=== PATIENT | female | born 1945 | race Hispanic/Latino ===

== ENCOUNTER 2020-08-21 09:39 | Emergency (ER) | payer MEDICARE ==
[~2020-08-21] VITALS: Ht 154.9 cm; Wt 79.4 kg
[~2020-08-21 09:39] MED LIST: CLINDAMYCIN HC300 MG PO; GLUCOPHAGE500 MG PO; LISINOPRIL5 MG PO
--- NOTE | 2020-08-21 10:11 | NUR ---
ON ARRIVAL, PT AMBULATORY WITH HER WALKER TO ROOM, OFFERED STRETCHER OR CHAIR FOR COMFORT. PT PREFERRED CHAIR. OK ALEXEY BEAL
[2020-08-21] MEDS ORDERED: FENTANYL CITRATE/PF 100MCG/2 ML INJ ONE (10:14)
[2020-08-21] MEDS ORDERED: ONDANSETRON HCL 4 MG ORAL DISINTEGRATING TAB ONE (10:15)
[2020-08-21] MEDS ORDERED: ONDANSETRON HCL 4 MG ORAL DISINTEGRATING TAB PO ONE (10:15)
[2020-08-21] MEDS ORDERED: FENTANYL CITRATE/PF 100MCG/2 ML INJ IJ ONE (10:15)
--- NOTE | 2020-08-21 10:16 | NUR ---
PT DECLINED ICE TRISTON, NO FENTYNAL, NO ZOFRAN. MD IN ROOM AND AWARE. MEDS DISCARDED PER POLICY. PT AGREED TO DRESS ABRASION TO RIGHT KNEE. BACITRACIN/NON STICK DRESSING/ROMAN WRAP BY .
--- OUTSIDE RECORDS SUMMARY | 2020-08-21 10:17 | XMS REPORT | Clinical Summary ---
Author Author [facility] Address Unknown Phone Unavailable Care Team Providers Care Talent Agent Name Role Phone Woodson, Sagar Ricks MD PCP Allergies Comments Active Allergy Reactions Severity Noted Date Sulfamethoxazole-Trimetho Rash Low 05/2018 prim Codeine Hives 05/22/2018 Levofloxacin Shortness Of High 05/22/2018 Breath Morphine Shortness Of High 05/22/2018 Breath Penicillins Swelling 05/22/2018 Medications End Date Status Medication Sig Dispensed Refills Start Date Active metFORMIN (GLUCOPHAGE) Take 500 mg 0 500 mg tablet by mouth 2 (two) times a day with meals. Active lisinopril Take 5 mg by 0 (PRINIVIL,ZESTRIL) 5 mg mouth 2 (two) tablet times a day. Active aspirin (ECOTRIN) 81 MG Take 81 mg by 0 enteric coated tablet mouth nightly. Active cholecalciferol, vitamin Take 2,000 0 D3, (VITAMIN D3) 2,000 Units by unit capsule capsule mouth daily. Active Problems Problem Noted Date Essential hypertension 05/27/2018 Overview: [id number] Type 2 diabetes mellitus with complication, without l yesica-term current use 05/27/2018 of insulin Overview: Added automatically from request for [facility] ery [id number] Hypertension 05/23/2018 Diabetes mellitus 05/23/2018 Surgical History Surgery Date Site/Laterality Comments KNEE SURGERY Bilateral BREAST SURGERY biopsies EYE SURGERY Left cataract GALLBLADDER SURGERY REPAIR, HERNIA, 06/14/2018 Abdomen/N/A Procedure: JAMILA OTIC ASSISTED INCISIONAL HERNIA INCISIONAL OR VENTRAL, REPAIR WITH MESH; Surgeon: Antoine Newberry, ROBOT-ASSISTED, ; Location: [facility] OR; S ervice: General; LAPAROSCOPIC Laterality: N/A; Medical devices from this surgery are i n the Implants section. Medical History Medical History Date Comments Breast disorder Cancer (HCC) hx of oviarian cancer Diabetes mellitus (HCC) Diverticulosis Hypertension Hx of mitral valve prolapse for 25 yrs Family History Medical History Relation Name Comments Diabetes Father Heart disease Father Arthritis Mother Breast cancer Mother Heart disease Mother Relation Name Status Comments Father Mother Social History Date Tobacco Use Types Packs/Day Years Used Never Smoker Smokeless Tobacco: Never Used Drinks/Week oz/Week Comments Alcohol Use 3 Glasses of wine 3.0 Yes Sex Assigned at Date Recorded Not on file Last Filed Vital Signs Not on file Plan of Treatment Health Maintenance Due Date Last Done Comments DIABETES: RETINAL EYE 1957 EXAM DIABETIC FOOT EXAM 1957 BREAST CANCER SCREENING 1997 COLONOSCOPY SCREENING 1997 SHINGLES VACCINES (#1) 1997 65+ PNEUMOCOCCAL VACCINE 2012 (1 of 1 - PPSV23) INFLUENZA VACCINE 05/15/2020 Implants Device Identifier Shelf Expiration Date Model / Serial / L ot Implanted Type Area Manufactur er 05/14/2022 [id number] / / [id number] Symbotex Tm Composite Mesh/2011 IPM GRAFTS N/A: Abdomen, COVIDIEN Cm, Box Of 1 - [id number] Middle Implanted: Qty: 1 on 06/14/2018 by Quadrant/Non Antoine Newberry MD at [facility] 02/11/2021 [id number] / / [id number] 18in V-Loc Pbt Non-Absorbable Wound Wound N/A: N/A COVIDIEN Closure Device, 1, Blue, Gs-21 10/16 Closure/[place] Needle tures CLOSURE Implanted: Qty: 1 on 06/14/2018 by (FORMERLY Antoine Newberry MD at [facility]) HOSPITAL Results Not on fileafter 08/21/2019 Insurance Type Payer Benefit Subscriber ID Effective Phone Address Plan / Dates Group Medicare MEDICARE MEDICARE [id number] [id number] [place], PART A AND resent [place] B Commercial AARP AARP [id number] [id number] SUPPLEMENT resent [phone] Advance Directives For more information, please contact: [phone] Patient Manager Of Sales Explanation Type Date Recorded Advance Directives, 06/07/2018 2:15 PM Living Will and Medical Power of Finishing Frame Runner Date Inactivated Comments Code Status Date Activated 06/15/2018 5:25 PM Full Code 06/14/2018 5:15 PM Code Status decision reached by: Patient
--- OUTSIDE RECORDS SUMMARY | 2020-08-21 10:17 | XMS REPORT | Continuity of Care Document ---
Author Author [facility] t Organization [facility] Address [address] [place] [address] Phone Unavailable Care Team Providers Care Assistant Distribution Manager Name Role Phone Halley LUDWIG PCP Unavailable Augustin KINESIOLOGIST, Agata Attphys Nishant KINESIOLOGIST, Nory Gonzalez Attphys Halley Ludwig MD Attphys Tory BEAL, Jose Attphys Tamika BEAL, Vance Hidalgo Attphys Luz Perkins Attphys Unavailable NORY ABARCA Attphys Unavailable Severo DONG, Shamar Attphys LISBET CYR Attphys Unavailable Laila BEAL, Lisbet Attphys Nannette DONG, Lexy Carrasquillo Attphys Unavailable RIMMA MOSLEY M.D. Attphys Unavailable LEONOR CORONADO M.D. Attphys Unavailable DEEPTI CORTEZ M.D. Attphys Unavailable SE, ECHO Attphys Unavailable MONICA JONES M.D. Attphys Unavailable Payers Payer Name Policy Type Policy Number Effective Date Expiration Date S ource MEDICAREMEDICARE PART A AND [id number] 03/15/[id number], [place] [place] [id number] 2012 00:00:00 MD Ishan nielson [employer] NARINDER-SECONDARY [id number] 2011-PresentMedigap [id number] 2012 00:0 0:00 MD De La Garza Problems Condition Name Condition Details Condition Category Status Onset Date Resolution Date Last Treatment Date Treating Clinician Comments Source Body mass index 30+ - obesity Body mass index 30+ - obesity Disease Active 2020-08-20 00:00:00 MD [place] son Type 2 diabetes mellitus Type 2 diabetes mellitus Disease Acti ve 2020-08-20 00:00:00 MD De La Garza Carcinoma of overlapping sites of left female breast C arcinoma of overlapping sites of left female breast Disease Active 2020-08-19 00:00:00 MD De La Garza 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 Disease Active 2020-08-19 00:00:00 MD Sole etienne Rhabdomyolysis Rhabdomyolysis Disease Active 2019-02-12 00:00:00 MD De La Garza Essential hypertension Essential hypertension Disease Active 2018-05-27 00:00:00 Overview: Added automaticall y from request for surgery [id number] [facility] Type 2 diabetes mellitus with complicati on, without long-term current use of insulin Type 2 diabetes mellitus with complicati on, without long-term current use of insulin Disease Active 2018-05-27 00:00:00 Overview: Added automatically from request for surgery [id number] [facility] History of Diabetes mellitus History of Diabetes mellitus Problem Re solved [facility] History of essential hypertension History of essential hypertens ion Problem Resolved [facility] History of Gallbladder problem History of Gallbladder problem Probl em Resolved [facility] History of hyperlipidemia History of hyperlipidemia Problem Resolved [facility] History of Ovarian Cancer History of Ovarian Cancer Problem Resolved [facility] Gastroenteritis Gastroenteritis Problem Active [facility] Edema, leg Edema, leg [facility] Essential (primary) hypertension Essential (primary) hypertensio n Problem Active [facility] Hyperlipidemia Hyperlipidemia Problem Active [facility] Coronary atherosclerosis Coronary atherosclerosis Problem Active [facility] Statin intolerance Statin intolerance Problem Active [facility] Chronic venous insufficiency Chronic venous insufficiency Problem Active [facility] Personal history of ovarian cancer Personal history of ovarian c ancer Disease Active Overview: treated at age 24 with oophorectomy only MD De La Garza Mitral valve prolapse Mitral valve prolapse Disease Active MD De La Garza Hypertension Hypertension Disease Active MD De La Garza Diabetes mellitus Diabetes mellitus Disease Active MD De La Garza Allergies, Adverse Reactions, Alerts Allergy Name Allergy Type Status Severity Reaction(s) Onset Date Inacti ve Date Treating Clinician Comments Source Sulfamethoxazole-Trimethoprim Propensity to adverse reactions to dr ug Active Rash 2018-05-22 00:00:00 Carroll Redmondist Codeine Propensity to adverse reactions to drug Active Hives 2018-05-22 00:00:00 Carroll Methodis t Levofloxacin Propensity to adverse reactions to drug Active Shortness Of Breath 2018-05-22 00:00:00 [facility] Morphine Propensity to adverse reactions to drug Active Shortness Of Breath 2018-05-22 00:00:00 [facility] Penicillins Propensity to adverse reactions to drug Active Swelling 2018-05-22 00:00:00 Carroll Redmondis t Bactrim Allergy to drug (finding) Active [facility] Codeine Derivatives Allergy to drug (finding) Active [facility] Levaquin TABS Allergy to drug (finding) Active [facility] Morphine Derivatives Allergy to drug (finding) Active [facility] pantoprazole Allergy to drug (finding) Active [facility] Penicillins Allergy to drug (finding) Active [facility] Statins Allergy to drug (finding) Active [facility] Family History Family Member Diagnosis Comments Start Date Stop Date Source Unknown Family Member Family history of Diabetes Mellitus Family Hist ory [facility] Grandmother Family history of Breast Cancer [facility] Grandmother Family history of malignant neoplasm of breast [facility] Mother Family history of Breast Cancer [facility] Mother Family history of Heart Disease [facility] Mother Family history of cancer [facility] Mother Family history of hypertension [facility] Mother Family history of arthritis [facility] Father Family history of diabetes mellitus [facility] Natural father Diabetes [facility] Natural father Heart disease [facility] Natural mother Arthritis [facility] Natural mother Breast cancer [facility] Natural mother Heart disease [facility] Natural mother -Breast cancer Maternal aunt Stomach cancer MD Ruth rschristy Maternal grandmother -Breast cancer MD De La Garza Natural son Leukemia MD De La Garza Family member Ovarian cancer MD Ruth rschristy Social History Social Habit Start Date Stop Date Quantity Comments Source Sex Assigned At MD De La Garza Exposure to SARS-CoV-2 (event) Not sure MD De La Garza Tobacco use and exposure 2020-08-20 00:00:00 2020-08-20 00:00:00 Amy brown used MD De La Garza Alcohol intake 2020-08-20 00:00:00 2020-08-20 00:00:00 Ex-drinker (fi nding) MD De La Garza Alcohol Comment 2018-01-21 00:00:00 2018-01-21 00:00:00 1 glass of wine sometimes MD De La Garza Smoking Status Start Date Stop Date Source Never smoker MD De La Garza Medications Ordered Medication Name Filled Medication Name Start Date Stop Da te Current Medication? Ordering Clinician Indication Dosage Frequency Signature (SIG) Comments Components Source aspirin 81 mg EC tablet 2020-08-20 15:12:01 Yes 81mg Take 81 mg by mouth daily. MD De La Garza cholecalciferol, vitamin D3, 400 units tablet 2020-08-20 15:12:0 1 Yes 800U Take 800 Units by mouth. MD De La Garza predniSONE (DELTASONE) 20 mg tablet 2020-08-20 15:12:01 Yes 1{tbl} Take 1 tablet by mouth every other day. MD De La Garza ascorbic acid (VITAMIN C ORAL) 2020-08-20 15:12:01 Yes Take by mouth. MD De La Garza CALCIUM ORAL 2020-08-20 15:12:01 Yes 1{tbl } Take 1 tablet by mouth daily. MD De La Garza azaTHIOprine (IMURAN) 50 mg tablet 2020-05-19 00:00:00 Yes 4{tbl} Take 4 tablets by mouth daily. MD De La Garza levothyroxine (SYNTHROID, LEVOTHROID) 25 mcg tablet 04-22 00:00:00 Yes 1{tbl} Take 1 tablet by mouth daily. MD De La Garza Levoxyl 25 MCG Oral Tablet Levoxyl 25 MCG Oral Tablet 2020-03-29 00:0 0:00 Yes 1 QD TAKE 1 TABLET DAILY. [facility] hydroCHLOROthiazide 25 MG Oral Tablet hydroCHLOROthiazide 25 MG Oral Tablet 2020-01-01 00:00:00 Yes RIMMA MOSLEY M.D. 1 QD TAKE 1 TABLET DAILY [facility] glipiZIDE ER 5 MG Oral Tablet Extended Release 24 Hour glipiZIDE ER 5 MG Oral Tablet Extended Release 24 Hour 2019-11-18 00:00:00 Yes 1 QD TAKE 1 TABLET DAILY. [facility] Iron 240 (27 Fe) MG Oral Tablet Iron 240 (27 Fe) MG Oral Tab let 2019-11-18 00:00:00 Yes [facility] metFORMIN (GLUCOPHAGE) 500 mg tablet 2019-02-09 14:11:50 Ye s 500mg Q.5D Take 500 mg by mouth 2 (two) times a day with meals. Carroll Lowe lisinopril (PRINIVIL,ZESTRIL) 5 mg tablet 2019-02-09 14:11:50 Yes 5mg Q.5D Take 5 mg by mouth 2 (two) times a day. Carroll Lowe aspirin (ECOTRIN) 81 MG enteric coated tablet 2019-02-09 14:11:5 0 Yes 81mg QD Take 81 mg by mouth nightly. Carroll Lowe cholecalciferol, vitamin D3, (VITAMIN D3) 2,000 unit capsule capsule 2019-02-09 14:11:50 Yes 2000U QD Take 2,000 Units b y mouth daily. Carroll Lowe Lisinopril 20 MG Oral Tablet Lisinopril 20 MG Oral Tablet 2017-07-15 00:00:00 Yes RIMMA MOSLEY M.D. 1 Q0.5D TAKE 1 TABLET BY MOUTH TWICE D WANDER [facility] metFORMIN (GLUCOPHAGE) 500 mg tablet 2016-11-08 00:00: 00 2020-08-20 00:00:00 No 500mg Take 500 mg by mouth 2 (two) times a day with meals. MD De La Garza lisinopril (PRINIVIL,ZESTRIL) 20 mg tablet 2016-08-24 00:00:00 Yes 5mg Take 5 mg by mouth 3 (three) times a day. MD De La Garza Aspirin 81 MG TABS Aspirin 81 MG TABS Yes 1 QD TA KE 1 TABLET DAILY. [facility] predniSONE 20 MG Oral Tablet predniSONE 20 MG Oral Tablet Yes [facility] azaTHIOprine 50 MG Oral Tablet azaTHIOprine 50 MG Oral Tablet Yes [facility] Vital Signs Vital Name Observation Time Observation Value Comments Source HEIGHT 2020-08-02 11:23:24 149.5 cm WEIGHT 2020-08-02 11:23:24 80.3 kg HEIGHT 2020-08-02 11:23:24 149.5 cm WEIGHT 2020-08-02 11:23:24 80.3 kg Body weight 2020-08-20 16:16:00 83.4 kg MD [place] son BMI 2020-08-20 16:16:00 37.32 kg/m2 MD Ishan nielson Systolic blood pressure 2020-08-20 14:57:41 154 mm[Hg] MD De La Garza Diastolic blood pressure 2020-08-20 14:57:41 73 mm[Hg] MD De La Garza Heart rate 2020-08-20 14:57:41 73 /min MD Ishan nielson Body temperature 2020-08-20 14:57:41 36.89 Patricia MD Lolita cheema Respiratory rate 2020-08-20 14:57:41 18 /min MD Lolita cheema Oxygen saturation in Arterial blood by Pulse oximetry 2019-10 14:57:41 98 /min MD De La Garza Body height 2020-08-02 16:23:24 149.5 cm MD [place] naga Systolic blood pressure 2020-03-29 11:03:00 121 mm[Hg] Loca tion: LUE; Position: Sitting [facility] Diastolic blood pressure 2020-03-29 11:03:00 71 mm[Hg] Loc ation: LUE; Position: Sitting [facility] Body height 2020-03-29 11:03:00 61 [in_us] [facility] Weight 2020-03-29 11:03:00 171 [lb_av] [facility] Body mass index (BMI) [Ratio] 2020-03-29 11:03:00 32.31 kg/m2 [facility] Heart Rate 2020-03-29 11:03:00 89 /min Location: L Radial; Q uality: Normal [facility] Procedures Procedure Date / Time Performed Performing Clinician Sourc e XR CHEST 2 VW 2020-08-20 19:14:41 Agata Ruffin MD HEMOGLOBIN A1C 2020-08-20 18:40:00 Agata Ruffin MD COMPREHENSIVE METABOLIC PANEL 2020-08-20 18:40:00 Davonte Ruffin MD COMPLETE BLOOD COUNT W/ DIFFERENTIAL 2020-08-20 18:40:00 Agata Montgomery do, MD PARTIAL THROMBOPLASTIN TIME 2020-08-20 18:40:00 Agata Ruffin MD PROTHROMBIN TIME 2020-08-20 18:40:00 Agata Ruffin MD THYROID STIMULATING HORMONE 2020-08-20 18:40:00 Agata Ruffin MD FREE THYROXINE 2020-08-20 18:40:00 Agata Ruffin MD GLUCOSE LEVEL 2020-08-20 18:40:00 Agata Ruffin MD BLOOD UREA NITROGEN 2020-08-20 18:40:00 Agata Ruffin MD Ishan nielson ELECTROLYTE PANEL 2020-08-20 18:40:00 Agata Ruffin MD Antwono n SERUM CREATININE 2020-08-20 18:40:00 Agata Ruffin MD .GLOMERULAR FILTRATION RATE 2020-08-20 18:40:00 Agata Ruffin MD CALCIUM LEVEL TOTAL 2020-08-20 18:40:00 Agata Ruffin MD Ishan nielson ALBUMIN LEVEL 2020-08-20 18:40:00 Agata Ruffin MD ALKALINE PHOSPHATASE 2020-08-20 18:40:00 Agata Ruffin MD rson ALANINE AMINOTRANSFERASE 2020-08-20 18:40:00 Agata Ruffin MD ASPARTATE AMINOTRANSFERASE 2020-08-20 18:40:00 Agata Ruffin TOTAL PROTEIN 2020-08-20 18:40:00 Agata Ruffin MD FRACTIONATED BILIRUBIN 2020-08-20 18:40:00 Agata Ruffin MD derson Results CBC 2020-08-20 18:40:00 Agata Ruffin MD MANUAL DIFFERENTIAL 2020-08-20 18:40:00 Agata Ruffin MD Ishan nielson EKG, 12-LEAD (SCHEDULED) 2020-08-20 00:00:00 Agata Ruffin MD MAMMO POST PROCEDURE BILATERAL 2020-08-11 22:23:30 Heather Abarca MD US BREAST COMPLETE BILATERAL 2020-08-11 22:11:00 Heather Abarca MD US CHEST 2020-08-11 22:11:00 Heather Abarca MD rschristy US BREAST FINE NEEDLE ASPIRATION - RIGHT 2020-08-11 22:11:00 Heather Abarca MD US GUIDED BREAST BIOPSY RIGHT 2020-08-11 22:11:00 Heather Abarca MD US GUIDED BREAST CLIP PLACEMENT RIGHT 2020-08-11 22:11:00 Heather Abarca MD PATHOLOGY BIOPSY INTERPRETATION 2020-08-11 22:05:00 Heather Abarca MD CYTOLOGY IMAGE-GUIDED FNA INTERPRETATION 2020-08-11 20:54:00 Heather Abarca MD PATHOLOGY BIOPSY INTERPRETATION 2020-08-11 20:51:00 Heather Abarca MD MAMMO DIGITAL DIAGNOSTIC LEFT 2020-08-11 19:10:01 Heather Abarca MD MAMMO DIGITAL SCREENING BILATERAL W ZORAN 2020-08-02 17:24:20 Heather Abarca MD History of Hysterectomy [facility] History of Cholecystectomy [facility] History of Section [facility] History of Tonsillectomy [facility] History of Appendectomy [facility] History of Biopsy [facility] History of Knee Arthroscopy (Therapeutic) [facility] History of Knee arthroscopy [facility] Plan of Care Planned Activity Planned Date Details Comments Source Future Scheduled Test 2020-05-15 00:00:00 INFLUENZA VACCINE [code = INFLUENZA VACCINE] [facility] Scheduled Test 2012 00:00:00 65+ PNEUMOCOCCAL V ACCINE (1 of 1 - PPSV23) [code = 65+ PNEUMOCOCCAL VACCINE (1 of 1 - PPSV23)] [facility] Scheduled Test 1997 00:00:00 BREAST CANCER SCRE ENING [code = BREAST CANCER SCREENING] [facility] Scheduled Test 1997 00:00:00 COLONOSCOPY SCREEN ING [code = COLONOSCOPY SCREENING] [facility] Scheduled Test 1997 00:00:00 SHINGLES VACCINES (#1) [code = SHINGLES VACCINES (#1)] [facility] Scheduled Test 1957 00:00:00 DIABETES: RETINAL EYE EXAM [code = DIABETES: RETINAL EYE EXAM] [facility] Scheduled Test 1957 00:00:00 DIABETIC FOOT EXAM [code = DIABETIC FOOT EXAM] [facility] Appointment 2020-09-27 10:20:00 Nicholas SHANKS, [facility] Encounters Start Date/Time End Date/Time Encounter Type Admission Type Attendi [facility] Care Department Encounter ID Source 2019-03-05 20:42:00 Inpatient [facility] MED [id number] [facility] 2020-08-11 17:05:10 2020-08-11 17:05:10 Outpatient HEATHER VICK MDA [id number] MD Frederic 2020-08-11 14:11:21 2020-08-11 14:11:21 Outpatient HEATHER VICK MDA [id number] MD Frederic 2020-08-11 13:34:34 2020-08-11 13:34:34 Outpatient HEATHER VICK MDA [id number] MD Frederic 2020-08-02 10:35:10 2020-08-02 23:59:00 Outpatient LISBET SWEENEY MDA MDA [id number] MD Frederic 2020-08-02 11:56:26 2020-08-02 11:56:26 Outpatient HEATHER VICK MDA [id number] MD Frederic 2020-08-02 11:01:46 2020-08-02 11:48:41 Outpatient HEATHER VICK MDA [id number] MD Frederic 2020-08-02 00:00:00 2020-08-02 00:00:00 Outpatient HEATHER VICK MDA [id number] MD Frederic 2020-03-29 11:00:00 2020-03-29 11:00:00 Appointment; RIMMA MOSLEY M.D. TRANG, AMANDA, M.D. [facility] [id number] [facility] 2020-03-28 18:39:00 2020-03-28 18:39:00 Emergency E MHSE MHSE [id number] [facility] 2020-01-01 11:00:00 2020-01-01 11:00:00 Appointment; RIMMA MOSLEY M.D. TRANG, AMANDA, M.D. [facility]TP [id number] [facility] 2019-12-18 04:20:00 2019-12-18 04:20:00 Outpatient E MHSE CAR [id number] [facility] 2019-11-18 14:00:00 2019-11-18 14:00:00 Appointment; LEONOR CORONADO M.D. GEORGE, BENNET, M.D. [facility]TP [id number] [facility] 2019-08-23 23:08:00 2019-08-23 23:08:00 Outpatient E [facility] MED [id number] [facility] 2019-07-30 14:40:00 2019-07-30 14:40:00 Appointment; DIMITRIRIMMA M.D. TRANG, AMANDA, M.D. [facility] [id number] [facility] 2019-04-01 10:00:00 2019-04-01 10:00:00 Appointment; DEEPTI CORTEZ M.D. NASCIMBENE, ANGELO, M.D. [facility] [id number] [facility] 2019-03-27 10:45:00 2019-03-27 10:45:00 Appointment; SE, ECHO SE, ECHO [facility]TP [id number] [facility] 2019-03-24 14:15:00 2019-03-24 14:15:00 Appointment; DEEPTI CORTEZ M.D. NASCIMBENE, ANGELO, M.D. [facility] [id number] [facility] 2019-02-28 15:04:00 2019-02-28 10:58:00 Inpatient E [facility] MED [id number] [facility] 2019-01-15 14:10:00 2019-01-15 14:10:00 Appointment; DEEPTI CORTEZ M.D. NASCIMBENE, ANGELO, M.D. [facility] [id number] [facility] 2018-04-17 07:15:00 2018-04-17 07:15:00 Appointment; MONICA GILLILAND M.D. TORRES-BARRE, LAURA, M.D. [facility] [id number] [facility] 2018-04-15 10:00:00 2018-04-15 10:00:00 Appointment; MONICA GILLILAND M.D. TORRES-BARRE, LAURA, M.D. [facility]TP [id number] [facility] Results Test Description Test Time Test Comments Results Result Comments Source Free T4 2020-08-20 19:37:20 Test Item T4 Free (test code = 7502) 1.43 ng/dL 0.93-1.7 T esting Performed at [facility] [employer] [facility], [address] [place] [address], [address], [place] [address] MD De La [id number] 19:37:19* Test Item Value Reference Range Interpretation Comments TSH (test code = 7578) 3.20 0.27- 4.20 mcunit/mL Note: New Methodology and Reference Range change effective 01/31/2018 at 1400 Testing Performed at [facility] [employer] [facility], [address], [address], [place] [address] MD De La GarzaHemoglobin [id number] 19:36:01* Test Item Value Reference Range Interpretation Comments A1C (test code = 4632) 6.9 % 4.3-5.6 H HbA1c values >=6.5% are diagnostic of diabetes mellitus.Diagnosis should be confirmed by repeat testing.Therapeutic Action suggested: >8.0% HbA1c; Goal oftherapy: <7.0% HbA1c Lab Interpretation (test code = 80728-2) Abnormal MD De La GarzaX-ray Chest 2 [id number] 19:22:56 No acute cardiorespiratory disease or radiographic evidence of metastatic disease. Interface, Radiology Results In - 08/20/2020 1:25 PM CSTFULL RESULT:Examination: XR CHEST 2 VW, 08/20/2020 1:14 PMClinical History: Malignant neoplasm of left female breast, not otherwise specifiedCarcinoma of overlapping sites of left female breast, not otherwise specifiedInfiltrating duct carcinoma of overlapping sites of right female breastIndication: Baseline Chest X-RayComparison: NoneTechnique: Posteroanterior, lateral and dual-energy radiographs of the chest.Findings:The lungs are normal. There is no pleural effusion or pneumothorax. There is no mediastinal or hilar adenopathy. Cardiac silhouette is borderline without e vidence of edema. Prior cholecystectomy. IMPRESSION:No acute cardiorespiratory d isease or radiographic evidence of metastatic disease.MD De La GarzaFractionated [id number] 19:22:42* Test Item Value Reference Range Interpretation Comments Bili Total (test code = 5096) 0.4 mg/dL <=1.2 Indocyanine Green (ICG) may cause falsely elevated bilirubin results. Total and direct bilirubin must not be measured from samples containing indocyanine green. False elevation of total bilirubin can be seen in patients with IgG concentrations above 28 g/L.Testing Performed at [facility] [employer] [facility], [address], [address], [place] [address] Bili Direct (test code = 5094) <0.2 <=0.3 mg/dL Indocyanine Green (ICG) may cause falsely elevated bilirubin results. Total and direct bilirubin must not be measured from samples containing indocyanine green. Testing Performed at [facility] [employer] [facility], [address], [address], [place] [address] Bili Indirect (test code = 5095) See Note 0-0.9 Testing Performed at [facility] [employer] [facility], [address], [address], [place], [place] [address]Hnsfwt to calculate Indirect Bilirubin result due to some parameters are outside reportable range MD De La GarzaGlomerular Filtration [id number] 19:22:41* Test Item Value Reference Range Interpretation Comments eGFR-AA (test code = 8062) 98 >=60 mL/min/1.73 sq. m Normal eGFR >= 60 mL/min/1.73 m2 Note: The eGFR is calculated using the CKD-EPI equation. The eGFR declines with age. eGFR <60 mL/min/1.73 m2 is considered as "decreased". This equation should only be used for patients 18 and older. According to the National Kidney Foundation's Kidney Disease Outcome Quality Initiative (KDOQI) classification and 2012 Kidney Disease Improving Global Outcomes (KDIGO) Clinical Practice Guideline, the stage of CKD should be categorized based on estimated GFR. Stage Description GFR mL/min/1.73 m21 Normal or high GFR >=902 Mildly decreased GFR 60-893a Mildly to moderately decreased GFR 45-593b Moderately to severely decreased GFR 30-444 Severely decreased GFR 15-295 Kidney failure <15 Testing Performed at [facility] [employer] [facility], [address], [address], [place] [address] eGFR-DAISHA (test code = 8063) 85 >=60 mL/min/1.73 sq. m Normal eGFR >= 60 mL/min/1.73 m2 Note: The eGFR is calculated using the CKD-EPI equation. The eGFR declines with age. eGFR <60 mL/min/1.73 m2 is considered as "decreased". This equation should only be used for patients 18 and older. According to the National Kidney Foundation's Kidney Disease Outcome Quality Initiative (KDOQI) classification and 2012 Kidney Disease Improving Global Outcomes (KDIGO) Clinical Practice Guideline, the stage of CKD should be categorized based on estimated GFR. Stage Description GFR mL/min/1.73 m21 Normal or high GFR >=902 Mildly decreased GFR 60-893a Mildly to moderately decreased GFR 45-593b Moderately to severely decreased GFR 30-444 Severely decreased GFR 15-295 Kidney failure <15 Testing Performed at [facility] [employer] [facility], [facility], [address], [place] [address] MD De La GarzaTotal [id number] 19:22:40* Test Item Value Reference Range Interpretation Comments Total Protein (test code = 7649) 6.8 g/dL 6.4-8.3 Testing Performed at [facility] [employer] [facility], [facility], [address], [place] [address] MD De La GarzaCalcium [id number] 19:22:39* Test Item Value Reference Range Interpretation Comments Calcium Lvl (test code = 5258) 9.4 mg/dL 8.4-10.2 Testing Performed at [facility], [facility], [address], [place] [address] MD De La GarzaAlkaline Ipqzkotuwmd1536-10-34 19:22:38* Test Item Value Reference Range Interpretation Comments Alk Phos (test code = 4768) 110 U/L 35-104 H Testing Performed at [facility] Environmental [employer] Engineer [facility], [facility], [address], [place] [address] Lab Interpretation (test code = 89502-9) Abnormal MD De La GarzaAlbumin Hbxfc9147-94-11 19:22:36* Test Item Value Reference Range Interpretation Comments Albumin Lvl (test code = 4763) 3.9 3.5- 5.2 gm/dL Testing Performed at [facility] Environmental [employer] Engineer [facility], [address] [place] [address], [address], [place] [address] MD De La GarzaAspartate Uykywmxyqdsgcpiq1296-44-87 19:22:35* Test Item Value Reference Range Interpretation Comments AST (test code = 4731) 29 U/L <=32 Testi ng Performed at [facility] Environmental [employer] Engineer [facility], [address] [place] [address], [address], [place] [address] MD De La GarzaRrqxqhigWLL5931-64-52 19:22:34* Test Item Value Reference Range Interpretation Comments ALT (test code = 4705) 23 U/L <=33 Testi ng Performed at [facility] [employer] [address], [address] [place] [address], [address], [place] [id number] MD De La GarzaElectrolyte Hxuym0284-74-90 19:22:33* Test Item Value Reference Range Interpretation Comments Sodium Lvl (test code = 7355) 139 136- 145 mEq/L Testing Performed at [facility] Environmental [employer] Engineer [facility], [address] [facility], [address], [place] [id number] Potassium Lvl (test code = 6854) 4.1 3.5- 5.1 mEq/L Testing Performed at [facility], [address] [facility], [address], [place] [address] Chloride (test code = 5279) 105 98- 107 mEq/L Testing Performed at [facility], [facility], [address], [place] [id number] CO2 (test code = 5227) 27 22- 29 mEq/L Testi ng Performed at [facility], [facility], [address], [place] [address] Anion Gap (test code = 9325) 7 4- 14 mEq/L Testing Performed at [facility], [address] [place] [address], [address], [place] [address] MD De La Garza.Serum Ilczbhncbi6942-27-38 19:22:32* Test Item Value Reference Range Interpretation Comments Creatinine (test code = 5399) 0.71 mg/dL 0.51-0.95 Testing Performed at [facility], [address] [facility], [address], [place] [id number] [id number] 19:22:31* Test Item Value Reference Range Interpretation Comments BUN (test code = 5055) 21 mg/dL 6-23 Testi ng Performed at [facility], [facility], [address], [place] [id number] MD De La GarzaGlucose [id number] 19:22:30* Test Item Value Reference Range Interpretation Comments Glucose Level (test code = 5699) 145 mg/dL 70-99 H Reference range is valid for fasting specimens only. Guidelines established by the [place] Diabetes [employer] guidelines (Standards of Medical Care in Diabetes 2016. Diabetes Care 2016; 39: S13-22) are that a fasting glucose of greater than or equal to 126 mg/dL or a random glucose greater than or equal to 200 mg/dL with symptoms, that are confirmed by repeat testing on a different day, meet the criteria for diabetes mellitus. Testing Performed at [facility], [address] [place] [address], [address], [place] [address] Lab Interpretation (test code = 20159-2) Abnormal MD DeL a GarzaPkyllheuJubdlxspwidl9524-97-82 19:12:41* Test Item Value Reference Range Interpretation Comments Neutrophil % (test code = 6491) 61.3 % 42-66 As part of Differential performed at [facility], [address] [place] [address], [address], [place] [address] Lymphocyte % (test code = 6194) 22.6 % 24-44 L Monocyte % (test code = 6422) 11.5 % 2-7 H Eosinophil % (test code = 5520) 3.3 % 1-4 Basophil % (test code = 5068) 0.9 % 0-1 IGRE % (test code = 5958) 0.4 % 0-0.4 IG RE % count includes Metamyelocytes, Myelocytes, and Promyelocytes. As part of Differential performed at [facility], [address] [place] [address], [address], [place] [address] Neutrophil Abs (test code = 6492) 2.77 K/uL 1.7-7.3 Lymphocyte Abs (test code = 6195) 1.02 K/uL 1-4.8 Monocyte Abs (test code = 6423) 0.52 K/uL 0.08-0.7 Eosinophil Abs (test code = 5521) 0.15 K/uL 0.04-0.4 Basophil Abs (test code = 5069) 0.04 K/uL 0-0.1 IG Abs (test code = 5954) 0.02 K/uL 0-0.04 Lab Interpretation (test code = 59138-7) Abnormal MD De La Garza.[id number] 19:12:36* Test Item Value Reference Range Interpretation Comments WBC (test code = 8034) 4.5 K/uL 4-11 RBC (test code = 6932) 4.28 4.00- 5.50 M/uL Hgb (test code = 5898) 12.6 12.0- 16.0 gm/dL A s part of CBC or as an individual orderable testing performed at [facility], [address] [place] [address], [address], [place] [address] Hct (test code = 5860) 41.6 % 37-47 As pa rt of CBC or as an individual orderable testing performed at [facility], [address] [place] [address], [address], [place] [address] MCV (test code = 6222) 97 fL 82-98 MCH (test code = 6220) 29.4 pg 27-31 MCHC (test code = 6221) 30.3 31.0- 36.0 gm/dL L RDW-SD (test code = 6972) 53.6 fL 35.1-46.3 H RDW-CV (test code = 6971) 15.2 % 12-15.5 Platelet count (test code = 6832) 297 K/uL 140-440 As part of CBC or as an individual orderable testing performed at [facility], [address] [place] [address], [address], [place] [address] MPV (test code = 6282) 10.0 fL 4-10.4 INRBC (test code = 5974) 0.0 % <=0.0 The INRBC (instrument NRBC) value reflects the enumerationof nucleated red blood cells contained in a 200uL sampleof whole blood analyzed by the instrument. This value maydiffer from the NRBC value reported in a manual differential,which is based on a 100 cell differential. As part of CBC testing performed at [address], [address], [place] [address] Lab Interpretation (test code = 45682-6) Abnormal MD De La GarzaPartial Thromboplastin [id number] 19:05:25* Test Item Value Reference Range Interpretation Comments PTT (test code = 66717-4) 32.5 24.2- 36.0 second(s) Testing Performed [address], [address], [place] [address]VXQB License: [id number] CASIMIRO (test code = CASIMIRO) This lab cannot be scheduled at the following locations due to collection/proccessing restrictions: [facility] and [facility]. MD De La GarzaProthrombin Time with [id number] 19:05:24* Test Item Value Reference Range Interpretation Comments PT (test code = 5902-2) 13.8 12.0- 14.3 second(s) Testing Performed [facility] Environmental Solutions Engineer [id number] [facility], [address] [address] INR (test code = 6301-6) 1.11 0.90-1.10 H Alicia ting Performed at[facility] Environmental Solutions Engineer Liws[address] [facility], [address] [address] CASIMIRO (test code = CASIMIRO) This lab cannot be scheduled at the following locations due to collection/proccessing restrictions: [facility] and [facility]. Lab Interpretation (test code = 89924-2) Abnormal MD De La GarzaCytology Image-Guided FNA Ahockqxiuvkmvy0615-72-29 16:28:00* Test Item Value Reference Range Interpretation Comments Gross Description (test code = 9534527714) [file] Ld64YKVxKF9UQebpVGI2GCIfxt3EeL== Immediate Assessment (test code = 9837) Adequate cellu larity, further review needed Major Classification (test code = 9839) MALIGNANT A Diagnosis (test code = 34) q8xzyFYcRJZbaNE2ZHZjIYSmj5joq3VoqYOruEAdKEojnXLnkmNaah12dKB2tC85RF7dCFJlHaA2INBb ubD1Ami2BAMxSUVinQXjH778l9eud3cjpjZxaXD8hKszGZYhXNIdHJisYAWvWnAgTO9vRkVhUVV2DKWd tQxynXuvVKYhavgjY2kaX4lbLHtlY00nYzGjlXMtxE ZhqSX9PTSjyva4JNBtcWUiVDjyOzFzWYZCZWQQWPDKQODRJN1ZCKAcVHkIAJXOPXCCWDKERIPOZmOVVX fVNG7NL0fIUSIwH8ZAWHUeLBIlGOHao08vWQ92GSxdFGK5 Comment (test code = 9835) t3sbbIXqBGFrtWR4LEKzFMQvq9kyl8SynTPbiIHrGLjfwFYihzXkps27iNO6aO92WK2qOUKbDtX6TTIw xqT1Gll2IFCfHCSmsDPyC073g3rwt8gmpuPjhID9kZqiUPDwGKHiRPkpZWFkCwBqLHgeEJKnvKpqMKQw WYdfNKRhgZn9uTZxOWTzYTTvoM88ktHzwUCeeNQoza NxquZcs4jbG5l4CFTij8GvfaFaBACsBPumD79mdwCnW3KrkXZax1k3fSGmr0LyyTPrtHwmKBhjUQBgr4 AzcW6bi6x4QwZNxPUdk2Gej3VqVOKyBSRew11paAIhFG87oWgkXCPenWvwWXKjbjFjRTjfNNPfgtMvTd oqmDB3DZiVIdZhEYkmMkuvYPNli9FsALTjuIFjm41ghNNpeyMfnJG9gR2zLjKrFOUaxo8= Retained/Biomarker Testing (test code = 9838) h7nlsCPpDQEybMD4HWTqIUDxr6ejj7BhiVBqePMeMRkiuSCcarGwdr77gEX4zD12NN9nORUbUyO7EAOw bcR2Cve9RUZyGHYmsBMsS538w2gbu5roczDgaAW4aYrcMYWiYFVfAVraSMIbAaTlY7T0MGhtD2qcUCNi IfjpzJFqk2ByFHWbr2Gjgqd3TFKlpreetVwwNTlpbQ 09NjByDOIDQXIvrXwkUnzkS0h6XF8nBNqtYNEmPWRVLZOfxYcvXoYMFLAgrcXJFQyuNJL2ORVoX8vpUM IgRklTSCBEUTogMSBTXHBhclxsaTBcbGluMFxwYXJ9 Informational Points (test code = 9836) a0dupNRtXPVmhSOlVyAwCKPwJRTfe0yjAANmoMIjLmNmNfIpPgQeWpcjkBTpKTQoSnEzc0oxr587lFDa a1fpLCCsUtP5rZZjQNLbnEXnC681UPZtSXbdn6mli0ItMJRtaXUnq7B2AWKZXUyiPXUFXPe9d0jgMmWl RcA2cBZvRBxuK6mqujPvvEUeKNVyJDj9oM13NUSyrM 8gbQWiNSkrslCaMeL9QAsfVVOlPoI1ICFqvFQcRNZiF8gcEPTkFOojEZHnOUvriCIgCRZ5fObwo3X4oL VrtKLvzBzpPyIeQxRkQqMDl6TgTXy5gSddP3KbSBAoXuQ6jKDpNVFqOAitIRNtDERhbxU8gR03YXbubo B4fGYzj0Fnx20wv564pA8jsTRqUNH5PSYuAJNvqRAx FTTaXUI6UWNfzHRnV3wpLDXzZH8kxeybPDrzPRqzAPBleEW2EMEsuDJpS9BbXBGlCTlsYWNwrgi9SyXi Ew0zdFWutOjfJXryl7iab0uvyFUtUjq2RXXmPfZdAwijHSxsa9Nil6qtKMUtfv1hKMG0hREeyAhcn5C0 cILpJMKeoZBcdbPmTWVnAmW5ZQamRI1ywd67ALDaMN Y1bm0dkQMfhQyrtqNehPAxFGztW7LyQMKgi182UJOmT9BbYYObl0T4gsKbIxOsSDLyrTR5waW8ARJfID f3vRSeyhU1iaZluBPdG4borC6bFAUqSZ3ktnnsk1utKTxsOHwhGTGkgHV1etE1WSHkfHExB1UomH2eFR XsRQasEESepsj5VqGtKu3zqFFxbQuwFTfeMiitOWcb CPFwsaLcmuEziVtbPQRjIFVqNHlhMGKkXYgzCKDyQIUmJiQyeForiLvloX7lNoUsBdCdFLnkYL7nPFOs F0ghaXXbLLWrFBIkB2btScStvB4brYkyYHclksR0TUjeD23mWSQ9GUM1teNnLSEzwoNiWWJtBGTyCX9n tYVfWMYuHZGiXL3uYQH6TTsjvYEoESGeUKKlNLXzd9 OnVI8mTFQbtUDaVIY1QHAtf2OxD4OwJVY6AGDzmF8cKCZpuVJANRZWWTDMsnWujbHbilMOXYNsg3upG4 ttZX0pEIafAn3tOAWokghfRHPavFAzmhKgFYTmJZUtFKXze5YrUNpwjgSdpn98HVMaHX2ox3KrI4qqnF JqcPj6FGUrXOJeBYWuz0ArZAMhuf91CYOoJnkzzGvo ZECxTn0zIv1oULTzvbZtTZV4FaPHGF6qxlehcAUxnKvbkq9mIPHdXTkgQSXbYUAeFmFzhMSvQlVtLgDz qCrlzFprArtqUtVyJVAzONklE8hfRfYyQwYxJyksMWB1 Lab Interpretation (test code = 27001-4) [facility]normal [facility] Iwndlgfgykdgrt5029-53-08 00:11:00* Test Item Value Reference Range Interpretation Comments Submitted Clinical History (test code = 37117) p4xstXMiDGBdsDD4DSUzMSLtc7qab7XdkXBbfQWsNTxaqXQkieEzjp39uNQ6xC41ME8dNZSeFiY0PNHc wlZ8Wjj4OTZxXHStxJJdF488h4psr3numdIcwKO1jWfiBOZoCTNqNBciWZZiWlPzDEGaxS3hbnRgrWeh WCYfq3JjPOpjGRdsCJF5 Diagnosis (test code = 34) n6ambFTtLQZriNC5PHDnQFGqg4tal6XtmSDtnKTmCJwldVQdtiEkxi07kLG1aT63GM2oRJCuApC8DRDo leQ6Wzl7VJWkWVOfqDWeS227x8nhv8xuhrIqiYU5cBzaTLDvBHWbHShrCWPhUfNuOP6jNJQutGDaljKl m0QfRUKeMRClmFMaLRJaZOJ4NRrlhfcboT2gjknoCu MhkMJafm0dAYNjGBMybZRkkWNsVVBxwBYvq212gjMrH4SqFYJxZGFoqjXzmbKyHDbxVOOez9AcdEmdmC UvXOBhMoFWZaSIN6wIBJOIT16FSFdlNByNDdKKJT1VSXEZFGQbV2TCW0cKB16LQElYRTixEwCGAm3NBJ PpNT0RUBITFhTCICxyXWcZI6cCB17ZZBRVHZBCAYgX KBLUTe2GLTzsWHhXDPTCCUOXNHZRNSuEGOISBFMWC8GAHO8RDKREBCeGG1ALUT8XTXGsU5OEAVXbZh6k MXEAKRRAS15PYW1HVRCnKTxyDWUsQz8aNyklbFMyFvCiRSA5NSHzQdciD57cpWTkecqqBZFuzoculO0x ufigELAmoDZgau6nBPTdWWZvdHJhnDVaTKPtgEQsj1 89biRxR3NhKCDnYCKslhRkdqTuMTwuVJGhc8IxyGwehWDaOCSqOsPOKuWIB5eUQERDUSZMHCqkV4IOP7 vOX97MYTeYHWwdF46GIVSgNHSPNZtOQFVKLRIOGQHQWEJHTMIYXPWFWxOCNs5JSDyXEXCfRvOINZADZs CKFrKRMTyjCk3VXFdHX1dXZILTHKOXV8vPR0rTZW zDRVZMQZIgAh2kRUDWMEOEC95LZT4IKHWnRUaqHZH6 Comment (test code = 9835) [file] TxEDXeyX2blZPpOYNryS71VlecQVI3 Synoptic Checklist (test code = 9864) Breast Biomarker Reporting Template (BREAST: BIOMARKER REPORTING TEMPLATE - A) Protocol posted: 12/10/2019 Test(s) Performed: Estrogen Receptor (ER) Status: Negative (less than 1%) : Internal control cells present and stain as expected Test Type: Food and Drug Administration (FDA) cleared (test / vendor): [employer] Primary Antibody: 6F11 Scoring System: No separate scoring system used Test(s) Performed: Progesterone Receptor (PgR) Status: Negative (less than 1%) : Internal control cells present and stain as expected Test Type: Food and Drug Administration (FDA) cleared (test / vendor): [employer] Primary Antibody: 16 Scoring System: No separate scoring system used Test(s) Performed: HER2 by Immunohistochemistry: Negative (Score 0) Test Type: Food and Drug Administration (FDA) cleared (test / vendor): [employer] Primary Antibody: 4B5 Test(s) Performed: Ki-67 Percentage of Cells with Nuclear Positivity: 60 % Primary Antibody: MIB1 Cold Ischemia and Fixation Times: Meet requirements specified in latest version of the ASCO / CAP Guidelines METHODS Fixative: Formalin Breast Biomarker Reporting Template (BREAST: BIOMARKER REPORTING TEMPLATE - B) Protocol posted: 12/10/2019 Test(s) Performed: Estrogen Receptor (ER) Status: Positive (greater than 10% of cells demonstrate nuclear positivity) Percentage of Cells with Nuclear Positivity: 91-100% Average Intensity of Staining: Strong Test Type: Food and Drug Administration (FDA) cleared (test / vendor): [employer] Primary Antibody: 6F11 Scoring System: No separate scoring system used Test(s) Performed: Progesterone Receptor (PgR) Status: Positive Percentage of Cells with Nuclear Positivity: 91-100% Average Intensity of Staining: Strong Test Type: Food and Drug Administration (FDA) cleared (test / vendor): Krissy knox Primary Antibody: 16 Scoring System: No separate scoring system used Test(s) Performed: HER2 by Immunohistochemistry: Negative (Score 0) Test Type: Food and Drug Administration (FDA) cleared (test / vendor): [employer] Primary Antibody: 4B5 Test(s) Performed: Ki-67 Percentage of Cells with Nuclear Positivity: 5 % Primary Antibody: MIB1 Cold Ischemia and Fixation Times: Meet requirements specified in latest version of the ASCO / CAP Guidelines METHODS Fixative: Formalin Gross Description (test code = 0553144968) [file] BnC3VdlXPdiPHozBBwWvKhcJFtkSIwcYDrIHIlVPzzJRFrLcPufRBmnUmvXAO5Bo6= Disclaimer (test code = 9844) u1dvqFBvKYIboMOaUaUsFVOhDYSwh8ngFHArdIFpVfDnPbOmIaTjLdsyjMHsVKYtRlRuj6ymn047mEDd n4gnGYMuHhU7tNKrPQGxkQXmO375TIIwPYtkb8tki5GxWHIhmTByw7D1IRFLwqgyjNb8bJaoS71ss6L1 JxjhJ7nxXENcFHBmM5KpIP0aBWBfMvs1YIE1DFT2GR TzYBCxO6FvER5mWSCelFIuLOg8n1tjtOcbRMOeFYO3k6xzQZpenvVaWT7xuj4nfXb3z3povcYtHDErGJ DltEFGOSShM3TswSymHp5nvJv7sHibRkpyVMZ9Wpw5ST2qii92ygk5ySgqENEpnmjaAoJ2LHbaLIThal qdTKg0PJvuKICtkRM2UUNdoVQtW0ZaANQwSH6ngul3 JMA9SBhjGEIcEgL0ZKIvaBXeDCRieYnsSHboq503JEL9XxAhZV9rH8Szb6Y0mD5dyNUrWKRpvLQiBoSr TPTadh4hhPJdGAzul1MoDQR1dlJ0gCJveMTbCPVqRK54Vbqei3OkBkefRNP0POZiopAgi9Dxb1riIwAu ufBrG3xmI6YjZQHnSJNiYRJaFlLrqhAvw9Ttj3PklE QzkRs8q4nfJAHcGLIzdMmnp3hfPBP3HTQmS3C5lWDks4plIIkaECJntZH6aaZ1QWSsnQWcR2BnaE9vIR HvMA9wrah1g0xvJLD8VSqwYQMjVtD0ckM6HWUezVMsDQBnrLhyLOrpg780HUM8WxYtSFTii5BmF9KuaQ ynC46mvCzoB59eIQLtgUsjgI9rbNyjiW5mFgZnJfTa DDdacIrzxDDihifbVXjxmrL1YBblxwmaXWGjFGqtT5xqEhCpWMOtxRxjETidf6GlNRBmJOEkUyqpzpH1 ZWALk05sOZPoi9BvGOXaoT5uxSMiUKhaznRkaYR5FWdxhtEvXgPczbDyMKRydI9kKCGhYU5iAOUezmEm zz2fgbQiMEQuHGSaA0QcnepiaWxevyWdKIGreg8gpj QvTGF6IATQAX4ITSGmHDIvu57wCDYtbBlupM2knAGyznYkUHEnn3ZfzF4iaKFQKMQuY7dnHQ0tZRgtr7 KfqWKplNHdxYQ4STSmv1BuKuZmkyCyfSYumXMcD8AfuIdgV7jbVNFpPWJfcjNswIYzx5RxZCOqhKC1mI XsKS2VSoXSm95aCHDeKCMDipNkIKRpsSyhuYC5uoB2 vP8hJsVJHyVyrCZwsMIdPgjxSNLkc640zt6nokJ9WZDdVFHgrptnq0FiIOOhXEOrgD70EAMhZHLyrn1i rqdhxCNdaaBpI0Ydvwv6fS5sSXVkVQsuDCOpIFUjYqKweBRpNrHjKuSjpTvwpWexGZbjXfSoNOQjTYui N3xfGtNnKqFdJlfzDNU2 [facility] Breast Biopsy - [id number] 00:12:02Addendum by Flower Bhat MD on 08/17/2020 6:02 PMADDENDED REPORT 08/17/2020 Addendum: A. 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 (SEE COMMENT #1) B. 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 (SEE COMMENT #2) Pathology and radiol ogy results are concordant.Continued care per surgery and oncology recommendatio ns. Dr. Abarca was notified by institutional electronic mail. Technically succe ssful ultrasound-guided biopsy of bilateral breast. Finalresults will be reporte d in an addendum. Technique: Ultrasound imaging of the right breast was perform ed. The skin of thebreast(s) was cleansed with chlorhexidine. Local anesthesia was achieved witha total of 10ml 1% Lidocaine with Bicarbonate Site 1: The lesio n in question was identified in the left breast at 8 -9o'clock, 7cm from the ni pple. The biopsy needle was advanced to the targetedlesion. Biopsy was performe d with a 14-gauge automated core biopsy device, and 4passes were made. A total o f 4 cores were obtained. A wing shaped marker clipwas deployed into the biopsied lesion. At the conclusion of the procedure,pressure was held until cessation of bleeding. The skin incision was closed withSteri-strips and covered with a band age. A wing shaped marker clip was placed at the biopsy site. Post proceduremamm ography confirms expected positioning of the marker clip(s)The clip marker lies within the biopsied lesion. The estimated blood loss for the procedure was mini mal. The patient toleratedthe procedure well without immediate complications an d left the department ingood condition. Examination: Right Breast Ultrasound Gu ided Needle Biopsy with Marker ClipPlacement and Post Biopsy Mammograms, 020. Technique: Ultrasound imaging of the right breast was performed. The skin o f thebreast(s) was cleansed with chlorhexidine. Local anesthesia was achieved w itha total of 6ml 1% Lidocaine with Bicarbonate Site2 FNA was performed first an d cores were requested by pathology. One passwith a 22 g needle was performed. The lesion in question was identified in theright breast at 12 o'clock, 9cm from the nipple. The biopsy needle was advancedto the targeted lesion. Pathology re quested core biopsy. A total of 4, 14gcores wereobtained. A marker clip was dep loyed into the biopsied lesion. At the conclusionof the procedure, pressure was held until cessation of bleeding. The skinincision was closed with Steri-strips and covered with a bandage. A [place] marker clip was placed at the biopsy site. P ost procedure mammographyconfirms expected positioning of the marker clip(s)The clip marker lies within the biopsied lesion. The estimated blood loss for the p rocedure was minimal. The patient toleratedthe procedure well without immediate complications and left the department ingood condition. IMPRESSION: Technically successful ultrasound guided biopsy of the both breasts. An addendumstefanoll be is sued once the final pathology result is available and reviewed. The patients clinical history was reviewed in detail. On the basis of availableclinical data, the procedure noted above is Urgent/Elective-Urgent. Theprocedure is immediately medically necessary as the risk for cancer progressionor deterioration is sign ificant if not performed immediately or significantlydelayed. The resulting decl ine in the patients health could make the patientmore vulnerable to COVID-19 and other issues. Interface, Radiology Results In - 08/11/2020 7:12 PM CDTClin ical History: 75-year-old woman with abnormal ultrasound presenting forbiopsy. Indication: Bilateral Mass. Comparison: 08/02/20 Technique: right breast FNA/cor e biopsy, Left core biopsy Images were obtained in multiple scanning planes. Fin dings:The lesion of interest was identified in the left <> . The patients clinical history was reviewed in detail. On the basis of availableclinical data, the procedure noted above is Urgent/Elective-Urgent. Theprocedure is immediately medically necessary as the risk for cancer progressionor deterioration is significant if not performed immediately or significantlydelayed. The resulting decline in the patients health could make the patientmore vulnerable to COVID-19 and other issues. Procedure(s):Ultrasound-Guided Breast Biopsy bilateral Primary Proceduralist: Dr. Dr. Flower Bhat. Dinkey Operator Slag(s): None Con sent: The procedure(s), risks, indications, and alternatives were explained.All questions were answered and informed consent was obtained. Procedure(s) in Detai l: A time-out was performed prior to the start of theprocedure and the correct p atient, procedure, presence of consent, site, andside were confirmed with all me mbers of the team. The skin was prepped in theusual sterile fashion with chlorhe xidine Lidocaine was administered for localanesthesia. Under direct sonographic guidance. Post-procedure Mammography: Multiple clips. Estimated Blood Loss: Min imal. Specimen(s) Removed: Yes. Immediate Complications: None. Post-procedure di agnosis: bilateral masses Disposition: home IMPRESSION:Technically successful ul trasound-guided biopsy of bilateral breast. Finalresults will be reported in an addendum. Technique: Ultrasound imaging of the right breast was performed. The skin of thebreast(s) was cleansed with chlorhexidine. Local anesthesia was achi eved witha total of 10ml 1% Lidocaine with Bicarbonate Site 1: The lesion in cassie bermeo was identified in the left breast at 8 -9o'clock, 7cm from the nipple. T he biopsy needle was advanced to the targetedlesion. Biopsy was performed with a 14-gauge automated core biopsy device, and 4passes were made. A total of 4 cores were obtained. A wing shaped marker clipwas deployed into the biopsied lesion. At the conclusion of the procedure,pressure was held until cessation of bleedin g. The skin incision was closed withSteri-strips and covered with a bandage. A w ing shaped marker clip was placed at the biopsy site. Post proceduremammography confirms expected positioning of the marker clip(s)The clip marker lies within the biopsied lesion. The estimated blood loss for the procedure was minimal. The patient toleratedthe procedure well without immediate complications and left t department ingood condition. Examination: Right Breast Ultrasound Guided Nee dle Biopsy with Marker ClipPlacement and Post Biopsy Mammograms, 08/11/2020. Juan Carlos hnique: Ultrasound imaging of the right breast was performed. The skin of thebre ast(s) was cleansed with chlorhexidine. Local anesthesia was achieved witha tot al of 6ml 1% Lidocaine with Bicarbonate Site2 FNA was performed first and cores were requested by pathology. One passwith a 22 g needle was performed. The les ion in question was identified in theright breast at 12 o'clock, 9cm from the ni pple. The biopsy needle was advancedto the targeted lesion. Pathology requested core biopsy. A total of 4, 14gcores wereobtained. A marker clip was deployed in to the biopsied lesion. At the conclusionof the procedure, pressure was held unt il cessation of bleeding. The skinincision was closed with Steri-strips and cove red with a bandage. A Perla marker clip was placed at the biopsy site. Post proc edure mammographyconfirms expected positioning of the marker clip(s)The clip sumit villa lies within the biopsied lesion. The estimated blood loss for the procedure was minimal. The patient toleratedthe procedure well without immediate complic ations and left the department ingood condition. IMPRESSION: Technically succes sful ultrasound guided biopsy of the both breasts. An addendumwill be issued onc e the final pathology result is available and reviewed. The patients clinical history was reviewed in detail. On the basis of availableclinical data, the pro cedure noted above is Urgent/Elective-Urgent. Theprocedure is immediately medica lly necessary as the risk for cancer progressionor deterioration is significant if not performed immediately or significantlydelayed. The resulting decline in t he patients health could make the patientmore vulnerable to COVID-19 and othe r issues. AndersonUS Guided Breast Clip Placement [id number] 00:12:02 Addendum by Flower Bhat MD on 08/17/2020 6:02 PMADDENDED REPORT --------- 08/17/2020 Addendum: A. 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 (SEE COMMENT #1) B. 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 (SEE COMMENT #2) Pathology and radiol ogy results are concordant.Continued care per surgery and oncology recommendatio ns. Dr. Abarca was notified by institutional electronic mail. Technically succe ssful ultrasound-guided biopsy of bilateral breast. Finalresults will be reporte d in an addendum. Technique: Ultrasound imaging of the right breast was perform ed. The skin of thebreast(s) was cleansed with chlorhexidine. Local anesthesia was achieved witha total of 10ml 1% Lidocaine with Bicarbonate Site 1: The lesio n in question was identified in the left breast at 8 -9o'clock, 7cm from the ni pple. The biopsy needle was advanced to the targetedlesion. Biopsy was performe d with a 14-gauge automated core biopsy device, and 4passes were made. A total o f 4 cores were obtained. A wing shaped marker clipwas deployed into the biopsied lesion. At the conclusion of the procedure,pressure was held until cessation of bleeding. The skin incision was closed withSteri-strips and covered with a band age. A wing shaped marker clip was placed at the biopsy site. Post proceduremamm ography confirms expected positioning of the marker clip(s)The clip marker lies within the biopsied lesion. The estimated blood loss for the procedure was mini mal. The patient toleratedthe procedure well without immediate complications an d left the department ingood condition. Examination: Right Breast Ultrasound Gu ided Needle Biopsy with Marker ClipPlacement and Post Biopsy Mammograms, 020. Technique: Ultrasound imaging of the right breast was performed. The skin o f thebreast(s) was cleansed with chlorhexidine. Local anesthesia was achieved w itha total of 6ml 1% Lidocaine with Bicarbonate Site2 FNA was performed first an d cores were requested by pathology. One passwith a 22 g needle was performed. The lesion in question was identified in theright breast at 12 o'clock, 9cm from the nipple. The biopsy needle was advancedto the targeted lesion. Pathology re quested core biopsy. A total of 4, 14gcores wereobtained. A marker clip was dep loyed into the biopsied lesion. At the conclusionof the procedure, pressure was held until cessation of bleeding. The skinincision was closed with Steri-strips and covered with a bandage. A Perla marker clip was placed at the biopsy site. P ost procedure mammographyconfirms expected positioning of the marker clip(s)The clip marker lies within the biopsied lesion. The estimated blood loss for the p rocedure was minimal. The patient toleratedthe procedure well without immediate complications and left the department ingood condition. IMPRESSION: Technically successful ultrasound guided biopsy of the both breasts. An addendumwill be is sued once the final pathology result is available and reviewed. The patients clinical history was reviewed in detail. On the basis of availableclinical data, the procedure noted above is Urgent/Elective-Urgent. Theprocedure is immediately medically necessary as the risk for cancer progressionor deterioration is sign ificant if not performed immediately or significantlydelayed. The resulting decl ine in the patients health could make the patientmore vulnerable to COVID-19 and other issues. Interface, Radiology Results In - 08/11/2020 7:12 PM CDTClin ical History: 75-year-old woman with abnormal ultrasound presenting forbiopsy. Indication: Bilateral Mass. Comparison: 08/02/20 Technique: right breast FNA/cor e biopsy, Left core biopsy Images were obtained in multiple scanning planes. Fin dings:The lesion of interest was identified in the left <> . The patients clinical history was reviewed in detail. On the basis of availableclinical data, the procedure noted above is Urgent/Elective-Urgent. Theprocedure is immediately medically necessary as the risk for cancer progressionor deterioration is significant if not performed immediately or significantlydelayed. The resulting decline in the patients health could make the patientmore vulnerable to COVID-19 and other issues. Procedure(s):Ultrasound-Guided Breast Biopsy bilateral Primary Proceduralist: Dr. Dr. Flower Bhat. Dinkey Operator Slag(s): None Con sent: The procedure(s), risks, indications, and alternatives were explained.All questions were answered and informed consent was obtained. Procedure(s) in Detai l: A time-out was performed prior to the start of theprocedure and the correct p atient, procedure, presence of consent, site, andside were confirmed with all me mbers of the team. The skin was prepped in theusual sterile fashion with chlorhe xidine Lidocaine was administered for localanesthesia. Under direct sonographic guidance. Post-procedure Mammography: Multiple clips. Estimated Blood Loss: Min imal. Specimen(s) Removed: Yes. Immediate Complications: None. Post-procedure di agnosis: bilateral masses Disposition: home IMPRESSION:Technically successful ul trasound-guided biopsy of bilateral breast. Finalresults will be reported in an addendum. Technique: Ultrasound imaging of the right breast was performed. The skin of thebreast(s) was cleansed with chlorhexidine. Local anesthesia was achi eved witha total of 10ml 1% Lidocaine with Bicarbonate Site 1: The lesion in cassie bermeo was identified in the left breast at 8 -9o'clock, 7cm from the nipple. T he biopsy needle was advanced to the targetedlesion. Biopsy was performed with a 14-gauge automated core biopsy device, and 4passes were made. A total of 4 cores were obtained. A wing shaped marker clipwas deployed into the biopsied lesion. At the conclusion of the procedure,pressure was held until cessation of bleedin g. The skin incision was closed withSteri-strips and covered with a bandage. A w ing shaped marker clip was placed at the biopsy site. Post proceduremammography confirms expected positioning of the marker clip(s)The clip marker lies within the biopsied lesion. The estimated blood loss for the procedure was minimal. The patient toleratedthe procedure well without immediate complications and left t he department ingood condition. Examination: Right Breast Ultrasound Guided Nee dle Biopsy with Marker ClipPlacement and Post Biopsy Mammograms, 08/11/2020. Juan Carlos hnique: Ultrasound imaging of the right breast was performed. The skin of thebre ast(s) was cleansed with chlorhexidine. Local anesthesia was achieved witha tot al of 6ml 1% Lidocaine with Bicarbonate Site2 FNA was performed first and cores were requested by pathology. One passwith a 22 g needle was performed. The les ion in question was identified in theright breast at 12 o'clock, 9cm from the ni pple. The biopsy needle was advancedto the targeted lesion. Pathology requested core biopsy. A total of 4, 14gcores wereobtained. A marker clip was deployed in to the biopsied lesion. At the conclusionof the procedure, pressure was held unt il cessation of bleeding. The skinincision was closed with Steri-strips and cove red with a bandage. A Perla marker clip was placed at the biopsy site. Post proc edure mammographyconfirms expected positioning of the marker clip(s)The clip mar ker lies within the biopsied lesion. The estimated blood loss for the procedure was minimal. The patient toleratedthe procedure well without immediate complic ations and left the department ingood condition. IMPRESSION: Technically succes sful ultrasound guided biopsy of the both breasts. An addendumwill be issued onc e the final pathology result is available and reviewed. The patients clinical history was reviewed in detail. On the basis of availableclinical data, the pro cedure noted above is Urgent/Elective-Urgent. Theprocedure is immediately medica lly necessary as the risk for cancer progressionor deterioration is significant if not performed immediately or significantlydelayed. The resulting decline in t he patients health could make the patientmore vulnerable to COVID-19 and othe r issues. MD De La GarzaUS Guided Breast Clip Placement [id number] 00:12:02 Addendum by Flower Bhat MD on 08/17/2020 6:02 PMADDENDED REPORT --------- 08/17/2020 Addendum: A. 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 (SEE COMMENT #1) B. 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 (SEE COMMENT #2) Pathology and radiol ogy results are concordant.Continued care per surgery and oncology recommendatio ns. Dr. Abarca was notified by institutional electronic mail. Technically succe ssful ultrasound-guided biopsy of bilateral breast. Finalresults will be reporte d in an addendum. Technique: Ultrasound imaging of the right breast was perform ed. The skin of thebreast(s) was cleansed with chlorhexidine. Local anesthesia was achieved witha total of 10ml 1% Lidocaine with Bicarbonate Site 1: The lesio n in question was identified in the left breast at 8 -9o'clock, 7cm from the ni pple. The biopsy needle was advanced to the targetedlesion. Biopsy was performe d with a 14-gauge automated core biopsy device, and 4passes were made. A total o f 4 cores were obtained. A wing shaped marker clipwas deployed into the biopsied lesion. At the conclusion of the procedure,pressure was held until cessation of bleeding. The skin incision was closed withSteri-strips and covered with a band age. A wing shaped marker clip was placed at the biopsy site. Post proceduremamm ography confirms expected positioning of the marker clip(s)The clip marker lies within the biopsied lesion. The estimated blood loss for the procedure was mini mal. The patient toleratedthe procedure well without immediate complications an d left the department ingood condition. Examination: Right Breast Ultrasound Gu ided Needle Biopsy with Marker ClipPlacement and Post Biopsy Mammograms, 020. Technique: Ultrasound imaging of the right breast was performed. The skin o f thebreast(s) was cleansed with chlorhexidine. Local anesthesia was achieved w itha total of 6ml 1% Lidocaine with Bicarbonate Site2 FNA was performed first an d cores were requested by pathology. One passwith a 22 g needle was performed. The lesion in question was identified in theright breast at 12 o'clock, 9cm from the nipple. The biopsy needle was advancedto the targeted lesion. Pathology re quested core biopsy. A total of 4, 14gcores wereobtained. A marker clip was dep loyed into the biopsied lesion. At the conclusionof the procedure, pressure was held until cessation of bleeding. The skinincision was closed with Steri-strips and covered with a bandage. A [place] marker clip was placed at the biopsy site. P ost procedure mammographyconfirms expected positioning of the marker clip(s)The clip marker lies within the biopsied lesion. The estimated blood loss for the p rocedure was minimal. The patient toleratedthe procedure well without immediate complications and left the department ingood condition. IMPRESSION: Technically successful ultrasound guided biopsy of the both breasts. An addendumwill be is sued once the final pathology result is available and reviewed. The patients clinical history was reviewed in detail. On the basis of availableclinical data, the procedure noted above is Urgent/Elective-Urgent. Theprocedure is immediately medically necessary as the risk for cancer progressionor deterioration is sign ificant if not performed immediately or significantlydelayed. The resulting decl ine in the patients health could make the patientmore vulnerable to COVID-19 and other issues. Interface, Radiology Results In - 08/11/2020 7:12 PM TClin ica History: 75-year-old woman with abnormal ultrasound presenting forbiopsy. Indication: Bilateral Mass. Comparison: 08/02/20 Technique: right breast FNA/cor e biopsy, Left core biopsy Images were obtained in multiple scanning planes. Fin dings:The lesion of interest was identified in the left <> . The patients clinical history was reviewed in detail. On the basis of availableclinical data, the procedure noted above is Urgent/Elective-Urgent. Theprocedure is immediately medically necessary as the risk for cancer progressionor deterioration is significant if not performed immediately or significantlydelayed. The resulting decline in the patients health could make the patientmore vulnerable to COVID-19 and other issues. Procedure(s):Ultrasound-Guided Breast Biopsy bilateral Primary Proceduralist: Dr. Dr. Flower Bhat. Dinkey Operator Slag(s): None Con sent: The procedure(s), risks, indications, and alternatives were explained.All questions were answered and informed consent was obtained. Procedure(s) in Detai l: A time-out was performed prior to the start of theprocedure and the correct p atient, procedure, presence of consent, site, andside were confirmed with all me mbers of the team. The skin was prepped in theusual sterile fashion with chlorhe xidine Lidocaine was administered for localanesthesia. Under direct sonographic guidance. Post-procedure Mammography: Multiple clips. Estimated Blood Loss: Min imal. Specimen(s) Removed: Yes. Immediate Complications: None. Post-procedure di agnosis: bilateral masses Disposition: home IMPRESSION:Technically successful ul trasound-guided biopsy of bilateral breast. Finalresults will be reported in an addendum. Technique: Ultrasound imaging of the right breast was performed. The skin of thebreast(s) was cleansed with chlorhexidine. Local anesthesia was achi eved witha total of 10ml 1% Lidocaine with Bicarbonate Site 1: The lesion in cassie bermeo was identified in the left breast at 8 -9o'clock, 7cm from the nipple. T he biopsy needle was advanced to the targetedlesion. Biopsy was performed with a 14-gauge automated core biopsy device, and 4passes were made. A total of 4 cores were obtained. A wing shaped marker clipwas deployed into the biopsied lesion. At the conclusion of the procedure,pressure was held until cessation of bleedin g. The skin incision was closed withSteri-strips and covered with a bandage. A w ing shaped marker clip was placed at the biopsy site. Post proceduremammography confirms expected positioning of the marker clip(s)The clip marker lies within the biopsied lesion. The estimated blood loss for the procedure was minimal. The patient toleratedthe procedure well without immediate complications and left t he department ingood condition. Examination: Right Breast Ultrasound Guided Nee dle Biopsy with Marker ClipPlacement and Post Biopsy Mammograms, 08/11/2020. Juan Carlos hnique: Ultrasound imaging of the right breast was performed. The skin of thebre ast(s) was cleansed with chlorhexidine. Local anesthesia was achieved witha tot al of 6ml 1% Lidocaine with Bicarbonate Site2 FNA was performed first and cores were requested by pathology. One passwith a 22 g needle was performed. The les ion in question was identified in theright breast at 12 o'clock, 9cm from the ni pple. The biopsy needle was advancedto the targeted lesion. Pathology requested core biopsy. A total of 4, 14gcores wereobtained. A marker clip was deployed in to the biopsied lesion. At the conclusionof the procedure, pressure was held unt il cessation of bleeding. The skinincision was closed with Steri-strips and cove red with a bandage. A [place] marker clip was placed at the biopsy site. Post proc edure mammographyconfirms expected positioning of the marker clip(s)The clip sumit villa lies within the biopsied lesion. The estimated blood loss for the procedure was minimal. The patient toleratedthe procedure well without immediate complic ations and left the department ingood condition. IMPRESSION: Technically succes sful ultrasound guided biopsy of the both breasts. An addendumwill be issued onc e the final pathology result is available and reviewed. The patients clinical history was reviewed in detail. On the basis of availableclinical data, the pro cedure noted above is Urgent/Elective-Urgent. Theprocedure is immediately medica lly necessary as the risk for cancer progressionor deterioration is significant if not performed immediately or significantlydelayed. The resulting decline in t he patients health could make the patientmore vulnerable to COVID-19 and othe r issues. MD De La GarzaUS Breast Biopsy - [id number] 00:12:02Addendum by Flower Bhat MD on 08/17/2020 6:02 PMADDENDED REPORT --------- 08/17/2020 Addendum: A. 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 (SEE COMMENT #1) B. 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 (SEE COMMENT #2) Pathology and radiol ogy results are concordant.Continued care per surgery and oncology recommendatio ns. Dr. Abarca was notified by institutional electronic mail. Technically succe ssful ultrasound-guided biopsy of bilateral breast. Finalresults will be reporte d in an addendum. Technique: Ultrasound imaging of the right breast was perform ed. The skin of thebreast(s) was cleansed with chlorhexidine. Local anesthesia was achieved witha total of 10ml 1% Lidocaine with Bicarbonate Site 1: The lesio n in question was identified in the left breast at 8 -9o'clock, 7cm from the ni pple. The biopsy needle was advanced to the targetedlesion. Biopsy was performe d with a 14-gauge automated core biopsy device, and 4passes were made. A total o f 4 cores were obtained. A wing shaped marker clipwas deployed into the biopsied lesion. At the conclusion of the procedure,pressure was held until cessation of bleeding. The skin incision was closed withSteri-strips and covered with a band age. A wing shaped marker clip was placed at the biopsy site. Post proceduremamm ography confirms expected positioning of the marker clip(s)The clip marker lies within the biopsied lesion. The estimated blood loss for the procedure was mini mal. The patient toleratedthe procedure well without immediate complications an d left the department ingood condition. Examination: Right Breast Ultrasound Gu ided Needle Biopsy with Marker ClipPlacement and Post Biopsy Mammograms, 020. Technique: Ultrasound imaging of the right breast was performed. The skin o f thebreast(s) was cleansed with chlorhexidine. Local anesthesia was achieved w itha total of 6ml 1% Lidocaine with Bicarbonate Site2 FNA was performed first an d cores were requested by pathology. One passwith a 22 g needle was performed. The lesion in question was identified in theright breast at 12 o'clock, 9cm from the nipple. The biopsy needle was advancedto the targeted lesion. Pathology re quested core biopsy. A total of 4, 14gcores wereobtained. A marker clip was dep loyed into the biopsied lesion. At the conclusionof the procedure, pressure was held until cessation of bleeding. The skinincision was closed with Steri-strips and covered with a bandage. A [place] marker clip was placed at the biopsy site. P ost procedure mammographyconfirms expected positioning of the marker clip(s)The clip marker lies within the biopsied lesion. The estimated blood loss for the p rocedure was minimal. The patient toleratedthe procedure well without immediate complications and left the department ingood condition. IMPRESSION: Technically successful ultrasound guided biopsy of the both breasts. An addendumwill be is sued once the final pathology result is available and reviewed. The patients clinical history was reviewed in detail. On the basis of availableclinical data, the procedure noted above is Urgent/Elective-Urgent. Theprocedure is immediately medically necessary as the risk for cancer progressionor deterioration is sign ificant if not performed immediately or significantlydelayed. The resulting decl ine in the patients health could make the patientmore vulnerable to COVID-19 and other issues. Interface, Radiology Results In - 08/11/2020 7:12 PM TClin ica History: 75-year-old woman with abnormal ultrasound presenting forbiopsy. Indication: Bilateral Mass. Comparison: 08/02/20 Technique: right breast FNA/cor e biopsy, Left core biopsy Images were obtained in multiple scanning planes. Fin dings:The lesion of interest was identified in the left <> . The patients clinical history was reviewed in detail. On the basis of availableclinical data, the procedure noted above is Urgent/Elective-Urgent. Theprocedure is immediately medically necessary as the risk for cancer progressionor deterioration is significant if not performed immediately or significantlydelayed. The resulting decline in the patients health could make the patientmore vulnerable to COVID-19 and other issues. Procedure(s):Ultrasound-Guided Breast Biopsy bilateral Primary Proceduralist: Dr. Dr. Flower Bhat. Dinkey Operator Slag(s): None Con sent: The procedure(s), risks, indications, and alternatives were explained.All questions were answered and informed consent was obtained. Procedure(s) in Detai l: A time-out was performed prior to the start of theprocedure and the correct p atient, procedure, presence of consent, site, andside were confirmed with all me mbers of the team. The skin was prepped in theusual sterile fashion with chlorhe xidine Lidocaine was administered for localanesthesia. Under direct sonographic guidance. Post-procedure Mammography: Multiple clips. Estimated Blood Loss: Min imal. Specimen(s) Removed: Yes. Immediate Complications: None. Post-procedure di agnosis: bilateral masses Disposition: home IMPRESSION:Technically successful ul trasound-guided biopsy of bilateral breast. Finalresults will be reported in an addendum. Technique: Ultrasound imaging of the right breast was performed. The skin of thebreast(s) was cleansed with chlorhexidine. Local anesthesia was achi eved witha total of 10ml 1% Lidocaine with Bicarbonate Site 1: The lesion in cassie bermeo was identified in the left breast at 8 -9o'clock, 7cm from the nipple. T he biopsy needle was advanced to the targetedlesion. Biopsy was performed with a 14-gauge automated core biopsy device, and 4passes were made. A total of 4 cores were obtained. A wing shaped marker clipwas deployed into the biopsied lesion. At the conclusion of the procedure,pressure was held until cessation of bleedin g. The skin incision was closed withSteri-strips and covered with a bandage. A w ing shaped marker clip was placed at the biopsy site. Post proceduremammography confirms expected positioning of the marker clip(s)The clip marker lies within the biopsied lesion. The estimated blood loss for the procedure was minimal. The patient toleratedthe procedure well without immediate complications and left t he department ingood condition. Examination: Right Breast Ultrasound Guided Nee dle Biopsy with Marker ClipPlacement and Post Biopsy Mammograms, 08/11/2020. Juan Carlos hnique: Ultrasound imaging of the right breast was performed. The skin of thebre ast(s) was cleansed with chlorhexidine. Local anesthesia was achieved witha tot al of 6ml 1% Lidocaine with Bicarbonate Site2 FNA was performed first and cores were requested by pathology. One passwith a 22 g needle was performed. The les ion in question was identified in theright breast at 12 o'clock, 9cm from the ni pple. The biopsy needle was advancedto the targeted lesion. Pathology requested core biopsy. A total of 4, 14gcores wereobtained. A marker clip was deployed in to the biopsied lesion. At the conclusionof the procedure, pressure was held unt il cessation of bleeding. The skinincision was closed with Steri-strips and cove red with a bandage. A Perla marker clip was placed at the biopsy site. Post proc edure mammographyconfirms expected positioning of the marker clip(s)The clip sumit villa lies within the biopsied lesion. The estimated blood loss for the procedure was minimal. The patient toleratedthe procedure well without immediate complic ations and left the department ingood condition. IMPRESSION: Technically succes sful ultrasound guided biopsy of the both breasts. An addendumwill be issued onc e the final pathology result is available and reviewed. The patients clinical history was reviewed in detail. On the basis of availableclinical data, the pro cedure noted above is Urgent/Elective-Urgent. Theprocedure is immediately medica lly necessary as the risk for cancer progressionor deterioration is significant if not performed immediately or significantlydelayed. The resulting decline in t he patients health could make the patientmore vulnerable to COVID-19 and othe r issues. AndersonUS Breast FNA - [id number] 00:12:02Addendum by Flower Bhat MD on 08/17/2020 6:02 PMADDENDED REPORT --------- 08/17/2020 Addendum: A. 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 (SEE COMMENT #1) B. 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 (SEE COMMENT #2) Pathology and radiol ogy results are concordant.Continued care per surgery and oncology recommendatio ns. Dr. Abarca was notified by institutional electronic mail. Technically succe ssful ultrasound-guided biopsy of bilateral breast. Finalresults will be reporte d in an addendum. Technique: Ultrasound imaging of the right breast was perform ed. The skin of thebreast(s) was cleansed with chlorhexidine. Local anesthesia was achieved witha total of 10ml 1% Lidocaine with Bicarbonate Site 1: The lesio n in question was identified in the left breast at 8 -9o'clock, 7cm from the ni pple. The biopsy needle was advanced to the targetedlesion. Biopsy was performe d with a 14-gauge automated core biopsy device, and 4passes were made. A total o f 4 cores were obtained. A wing shaped marker clipwas deployed into the biopsied lesion. At the conclusion of the procedure,pressure was held until cessation of bleeding. The skin incision was closed withSteri-strips and covered with a band age. A wing shaped marker clip was placed at the biopsy site. Post proceduremamm ography confirms expected positioning of the marker clip(s)The clip marker lies within the biopsied lesion. The estimated blood loss for the procedure was mini mal. The patient toleratedthe procedure well without immediate complications an d left the department ingood condition. Examination: Right Breast Ultrasound Gu ided Needle Biopsy with Marker ClipPlacement and Post Biopsy Mammograms, 020. Technique: Ultrasound imaging of the right breast was performed. The skin o f thebreast(s) was cleansed with chlorhexidine. Local anesthesia was achieved w itha total of 6ml 1% Lidocaine with Bicarbonate Site2 FNA was performed first an d cores were requested by pathology. One passwith a 22 g needle was performed. The lesion in question was identified in theright breast at 12 o'clock, 9cm from the nipple. The biopsy needle was advancedto the targeted lesion. Pathology re quested core biopsy. A total of 4, 14gcores wereobtained. A marker clip was dep loyed into the biopsied lesion. At the conclusionof the procedure, pressure was held until cessation of bleeding. The skinincision was closed with Steri-strips and covered with a bandage. A Perla marker clip was placed at the biopsy site. P ost procedure mammographyconfirms expected positioning of the marker clip(s)The clip marker lies within the biopsied lesion. The estimated blood loss for the p rocedure was minimal. The patient toleratedthe procedure well without immediate complications and left the department ingood condition. IMPRESSION: Technically successful ultrasound guided biopsy of the both breasts. An addendumwill be is sued once the final pathology result is available and reviewed. The patients clinical history was reviewed in detail. On the basis of availableclinical data, the procedure noted above is Urgent/Elective-Urgent. Theprocedure is immediately medically necessary as the risk for cancer progressionor deterioration is sign ificant if not performed immediately or significantlydelayed. The resulting decl ine in the patients health could make the patientmore vulnerable to COVID-19 and other issues. Interface, Radiology Results In - 08/11/2020 7:12 PM CDTClin ical History: 75-year-old woman with abnormal ultrasound presenting forbiopsy. Indication: Bilateral Mass. Comparison: 08/02/20 Technique: right breast FNA/cor e biopsy, Left core biopsy Images were obtained in multiple scanning planes. Fin dings:The lesion of interest was identified in the left <> . The patients clinical history was reviewed in detail. On the basis of availableclinical data, the procedure noted above is Urgent/Elective-Urgent. Theprocedure is immediately medically necessary as the risk for cancer progressionor deterioration is significant if not performed immediately or significantlydelayed. The resulting decline in the patients health could make the patientmore vulnerable to COVID-19 and other issues. Procedure(s):Ultrasound-Guided Breast Biopsy bilateral Primary Proceduralist: Dr. Dr. Flower Bhat. Dinkey Operator Slag(s): None Con sent: The procedure(s), risks, indications, and alternatives were explained.All questions were answered and informed consent was obtained. Procedure(s) in Detai l: A time-out was performed prior to the start of theprocedure and the correct p atient, procedure, presence of consent, site, andside were confirmed with all me mbers of the team. The skin was prepped in theusual sterile fashion with chlorhe xidine Lidocaine was administered for localanesthesia. Under direct sonographic guidance. Post-procedure Mammography: Multiple clips. Estimated Blood Loss: Min imal. Specimen(s) Removed: Yes. Immediate Complications: None. Post-procedure di agnosis: bilateral masses Disposition: home IMPRESSION:Technically successful ul trasound-guided biopsy of bilateral breast. Finalresults will be reported in an addendum. Technique: Ultrasound imaging of the right breast was performed. The skin of thebreast(s) was cleansed with chlorhexidine. Local anesthesia was achi eved witha total of 10ml 1% Lidocaine with Bicarbonate Site 1: The lesion in cassie bermeo was identified in the left breast at 8 -9o'clock, 7cm from the nipple. T he biopsy needle was advanced to the targetedlesion. Biopsy was performed with a 14-gauge automated core biopsy device, and 4passes were made. A total of 4 cores were obtained. A wing shaped marker clipwas deployed into the biopsied lesion. At the conclusion of the procedure,pressure was held until cessation of bleedin g. The skin incision was closed withSteri-strips and covered with a bandage. A w ing shaped marker clip was placed at the biopsy site. Post proceduremammography confirms expected positioning of the marker clip(s)The clip marker lies within the biopsied lesion. The estimated blood loss for the procedure was minimal. The patient toleratedthe procedure well without immediate complications and left [facility] department ingood condition. Examination: Right Breast Ultrasound Guided Nee dle Biopsy with Marker ClipPlacement and Post Biopsy Mammograms, 08/11/2020. Juan Carlos hnique: Ultrasound imaging of the right breast was performed. The skin of thebre ast(s) was cleansed with chlorhexidine. Local anesthesia was achieved witha tot al of 6ml 1% Lidocaine with Bicarbonate Site2 FNA was performed first and cores were requested by pathology. One passwith a 22 g needle was performed. The les ion in question was identified in theright breast at 12 o'clock, 9cm from the ni pple. The biopsy needle was advancedto the targeted lesion. Pathology requested core biopsy. A total of 4, 14gcores wereobtained. A marker clip was deployed in to the biopsied lesion. At the conclusionof the procedure, pressure was held unt il cessation of bleeding. The skinincision was closed with Steri-strips and cove red with a bandage. A [place] marker clip was placed at the biopsy site. Post proc edure mammographyconfirms expected positioning of the marker clip(s)The clip mar ker lies within the biopsied lesion. The estimated blood loss for the procedure was minimal. The patient toleratedthe procedure well without immediate complic ations and left the department ingood condition. IMPRESSION: Technically succes sful ultrasound guided biopsy of the both breasts. An addendumwill be issued onc e the final pathology result is available and reviewed. The patients clinical history was reviewed in detail. On the basis of availableclinical data, the pro cedure noted above is Urgent/Elective-Urgent. Theprocedure is immediately medica lly necessary as the risk for cancer progressionor deterioration is significant if not performed immediately or significantlydelayed. The resulting decline in t he patients health could make the patientmore vulnerable to COVID-19 and othe r issues. AndersonPost Procedure Mammogram [id number] 00:12:02 Addendum by Flower Bhat MD on 08/17/2020 6:02 PMADDENDED REPORT --------- 08/17/2020 Addendum: A. 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 (SEE COMMENT #1) B. 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 (SEE COMMENT #2) Pathology and radiol ogy results are concordant.Continued care per surgery and oncology recommendatio ns. Dr. Abarca was notified by institutional electronic mail. Technically succe ssful ultrasound-guided biopsy of bilateral breast. Finalresults will be reporte d in an addendum. Technique: Ultrasound imaging of the right breast was perform ed. The skin of thebreast(s) was cleansed with chlorhexidine. Local anesthesia was achieved witha total of 10ml 1% Lidocaine with Bicarbonate Site 1: The lesio n in question was identified in the left breast at 8 -9o'clock, 7cm from the ni pple. The biopsy needle was advanced to the targetedlesion. Biopsy was performe d with a 14-gauge automated core biopsy device, and 4passes were made. A total o f 4 cores were obtained. A wing shaped marker clipwas deployed into the biopsied lesion. At the conclusion of the procedure,pressure was held until cessation of bleeding. The skin incision was closed withSteri-strips and covered with a band age. A wing shaped marker clip was placed at the biopsy site. Post proceduremamm ography confirms expected positioning of the marker clip(s)The clip marker lies within the biopsied lesion. The estimated blood loss for the procedure was mini mal. The patient toleratedthe procedure well without immediate complications an d left the department ingood condition. Examination: Right Breast Ultrasound Gu ided Needle Biopsy with Marker ClipPlacement and Post Biopsy Mammograms, 020. Technique: Ultrasound imaging of the right breast was performed. The skin o f thebreast(s) was cleansed with chlorhexidine. Local anesthesia was achieved w itha total of 6ml 1% Lidocaine with Bicarbonate Site2 FNA was performed first an d cores were requested by pathology. One passwith a 22 g needle was performed. The lesion in question was identified in theright breast at 12 o'clock, 9cm from the nipple. The biopsy needle was advancedto the targeted lesion. Pathology re quested core biopsy. A total of 4, 14gcores wereobtained. A marker clip was dep loyed into the biopsied lesion. At the conclusionof the procedure, pressure was held until cessation of bleeding. The skinincision was closed with Steri-strips and covered with a bandage. A Perla marker clip was placed at the biopsy site. P ost procedure mammographyconfirms expected positioning of the marker clip(s)The clip marker lies within the biopsied lesion. The estimated blood loss for the p rocedure was minimal. The patient toleratedthe procedure well without immediate complications and left the department ingood condition. IMPRESSION: Technically successful ultrasound guided biopsy of the both breasts. An addendumwill be is sued once the final pathology result is available and reviewed. The patients clinical history was reviewed in detail. On the basis of availableclinical data, the procedure noted above is Urgent/Elective-Urgent. Theprocedure is immediately medically necessary as the risk for cancer progressionor deterioration is sign ificant if not performed immediately or significantlydelayed. The resulting decl ine in the patients health could make the patientmore vulnerable to COVID-19 and other issues. Interface, Radiology Results In - 08/11/2020 7:12 PM CDTClin ical History: 75-year-old woman with abnormal ultrasound presenting forbiopsy. Indication: Bilateral Mass. Comparison: 08/02/20 Technique: right breast FNA/cor e biopsy, Left core biopsy Images were obtained in multiple scanning planes. Fin dings:The lesion of interest was identified in the left <> . The patients clinical history was reviewed in detail. On the basis of availableclinical data, the procedure noted above is Urgent/Elective-Urgent. Theprocedure is immediately medically necessary as the risk for cancer progressionor deterioration is significant if not performed immediately or significantlydelayed. The resulting decline in the patients health could make the patientmore vulnerable to COVID-19 and other issues. Procedure(s):Ultrasound-Guided Breast Biopsy bilateral Primary Proceduralist: Dr. Dr. Flower Bhat. Dinkey Operator Slag(s): None Con sent: The procedure(s), risks, indications, and alternatives were explained.All questions were answered and informed consent was obtained. Procedure(s) in Detai l: A time-out was performed prior to the start of theprocedure and the correct p atient, procedure, presence of consent, site, andside were confirmed with all me mbers of the team. The skin was prepped in theusual sterile fashion with chlorhe xidine Lidocaine was administered for localanesthesia. Under direct sonographic guidance. Post-procedure Mammography: Multiple clips. Estimated Blood Loss: Min imal. Specimen(s) Removed: Yes. Immediate Complications: None. Post-procedure di agnosis: bilateral masses Disposition: home IMPRESSION:Technically successful ul trasound-guided biopsy of bilateral breast. Finalresults will be reported in an addendum. Technique: Ultrasound imaging of the right breast was performed. The skin of thebreast(s) was cleansed with chlorhexidine. Local anesthesia was achi eved witha total of 10ml 1% Lidocaine with Bicarbonate Site 1: The lesion in cassie bermeo was identified in the left breast at 8 -9o'clock, 7cm from the nipple. T he biopsy needle was advanced to the targetedlesion. Biopsy was performed with a 14-gauge automated core biopsy device, and 4passes were made. A total of 4 cores were obtained. A wing shaped marker clipwas deployed into the biopsied lesion. At the conclusion of the procedure,pressure was held until cessation of bleedin g. The skin incision was closed withSteri-strips and covered with a bandage. A w ing shaped marker clip was placed at the biopsy site. Post proceduremammography confirms expected positioning of the marker clip(s)The clip marker lies within the biopsied lesion. The estimated blood loss for the procedure was minimal. The patient toleratedthe procedure well without immediate complications and left t he department ingood condition. Examination: Right Breast Ultrasound Guided Nee dle Biopsy with Marker ClipPlacement and Post Biopsy Mammograms, 08/11/2020. Juan Carlos hnique: Ultrasound imaging of the right breast was performed. The skin of thebre ast(s) was cleansed with chlorhexidine. Local anesthesia was achieved witha tot al of 6ml 1% Lidocaine with Bicarbonate Site2 FNA was performed first and cores were requested by pathology. One passwith a 22 g needle was performed. The les ion in question was identified in theright breast at 12 o'clock, 9cm from the ni pple. The biopsy needle was advancedto the targeted lesion. Pathology requested core biopsy. A total of 4, 14gcores wereobtained. A marker clip was deployed in to the biopsied lesion. At the conclusionof the procedure, pressure was held unt il cessation of bleeding. The skinincision was closed with Steri-strips and cove red with a bandage. A [place] marker clip was placed at the biopsy site. Post proc edure mammographyconfirms expected positioning of the marker clip(s)The clip mar ker lies within the biopsied lesion. The estimated blood loss for the procedure was minimal. The patient toleratedthe procedure well without immediate complic ations and left the department ingood condition. IMPRESSION: Technically succes sful ultrasound guided biopsy of the both breasts. An addendumwill be issued onc e the final pathology result is available and reviewed. The patients clinical history was reviewed in detail. On the basis of availableclinical data, the pro cedure noted above is Urgent/Elective-Urgent. Theprocedure is immediately medica lly necessary as the risk for cancer progressionor deterioration is significant if not performed immediately or significantlydelayed. The resulting decline in t he patients health could make the patientmore vulnerable to COVID-19 and othe r issues. MD De La GarzaMammography Digital Diagnostic [id number] 23:53:15* Test Item Value Reference Range Interpretation Comments IMP (test code = IMP) New mass in the left breast requires additional imaging evaluation. Anultrasound exam and possible biopsy is recommended. Bilateral ultrasound wasperformed the same day and is dictated separately. BI-RADS Category 0:Incomplete: Needs Additional Imaging Evaluation PXN (test code = PXN) Interface, Radiology Results In 08/11/2020 6:53 PM CDTCLINICAL INDICATION:Patient is a 75 year old female and is seen for other signs and symptoms in thebreast MAMMO DIGITAL DIAGNOSTIC LEFTDigital Mammogram evaluated with Computer Aided Detection (CAD). COMPARISON:The present examination has been compared to prior imaging studies performed [facility] on 12/09/2014, 11/15/2015, 12/12/2016,01/21/2018 and 08/02/2020. FINDINGS:There are scattered areas of fibroglandular density. There is a new irregular mass with associated coarse heterogeneouscalcifications in the left breast inner hemisphere at 8 to 9 o'clock located 11centimeters from the nipple. The mass component measures 1.5x1.2x0.8cm. Theinvolved calcifications measure 2.0x1.2x0.8cm. IMPRESSION:New mass in the left breast requires additional imaging evaluation. Anultrasound exam and possible biopsy is recommended. Bilateral ultrasound wasperformed the same day and is dictated separately. BI-RADS Category 0:Incomplete: Needs Additional Imaging Evaluation Lab Interpretation (test code = 19412-8) Abnormal MD De La GarzaUS Breast Complete - [id number] 23:47:59* Test Item Value Reference Range Interpretation Comments IMP (test code = IMP) 1: Mass in the right breast upper hemisphere at 12 o'clock located 9centimeters from the nipple is suspicious. Biopsy should be considered. Thepatient and referring doc were notified and biopsy performed the same day. 2: Mass in the right breast upper outer quadrant at 10 o'clock located 10centimeters from the nipple is benign. 3: Mass in the left breast inner hemisphere at 8 to 9 o'clock located 7centimeters from the nipple is suspicious. Biopsy should be considered. Thepatient and referring doc were notified and biopsy performed the same day. BI-RADS Category 4C:Suspicious Abnormality PXN (test code = PXN) Interface, Radiology Results In - 08/11/2020 6:48 PM CDTCLINICAL INDICATION:Patient is a 75 year old female and is seen for additional evaluation requestedfrom prior study FILMS COMPAREDThe present exa mination has been compared [facility], 12/05/2018 and 08/02/2020,and at [facility] on 08/11/2020. Images were obtained in multiple scanning planes. Real-time sonographic imaging of both breasts (including all 4 quadrants andretroareolar region) was performed. Real-time sonographic imaging of bilateralchest wall regions was performed. Real time sonographic imaging of bilateralaxilla was performed. Real-time sonographic imaging of bilateral regional nodalbasins including the axillary (level I ,II,III) and internal mammary regions wasperformed. 1: There is a mass measuring 0.8 x 0.6 x 0.5 cm in the right breast upperhemisphere at 12 o'clock located 9 centimeters from the nipple. There is noassociated increased vascularity. 2: There is a stable mass in the right breast upper outer quadrant at 10o'clock located 10 centimeters from the nipple. 3: There is an irregular mass measuring 1.4 x 0.8 x 0.8 cm in the left breastinner hemisphere at 8 to 9 o'clock located 7 centimeters from the nipple. Thereare associated calcifications. This corresponds to the mammographic finding. Left Regional Cintia Basins: No suspicious axillary levels I, II, III(infraclavicular) or internal mammary lymph node is identified. Right Regional Cintia Basins: No suspicious axillary levels I, II, III(infraclavicular) or internal mammary lymph node is identified. IMPRESSION:1: Mass in the right breast upper hemisphere at 12 o'clock located 9centimeters from the nipple is suspicious. Biopsy should be considered. Thepatient and referring doc were notified and biopsy performed the same day. 2: Mass in the right breast upper outer quadrant at 10 o'clock located 10centimeters from the nipple is benign. 3: Mass in the left breast inner hemisphere at 8 to 9 o'clock located 7centimeters from the nipple is suspicious. Biopsy should be considered. Thepatient and referring doc were notified and biopsy performed the same day. BI-RADS Category 4C:Suspicious Abnormality Lab Interpretation (test code = 09506-1) Abnormal MD De La GarzaUS [id number] 23:47:59* Test Item Value Reference Range Interpretation Comments IMP (test code = IMP) 1: Mass in the right breast upper hemisphere at 12 o'clock located 9centimeters from the nipple is suspicious. Biopsy should be considered. Thepatient and referring doc were notified and biopsy performed the same day. 2: Mass in the right breast upper outer quadrant at 10 o'clock located 10centimeters from the nipple is benign. 3: Mass in the left breast inner hemisphere at 8 to 9 o'clock located 7centimeters from the nipple is suspicious. Biopsy should be considered. Thepatient and referring doc were notified and biopsy performed the same day. BI-RADS Category 4C:Suspicious Abnormality PXN (test code = PXN) Interface, Radiology Results In - 08/11/2020 6:48 PM CDTCLINICAL INDICATION:Patient is a 75 year old female and is seen for additional evaluation requestedfrom prior study FILMS COMPAREDThe present exa mination has been [facility] 12/05[facility] and 08/02/2020,and at [facility] on 08/11/2020. Images were obtained in multiple scanning planes. Real-time sonographic imaging of both breasts (including all 4 quadrants andretroareolar region) was performed. Real-time sonographic imaging of bilateralchest wall regions was performed. Real time sonographic imaging of bilateralaxilla was performed. Real-time sonographic imaging of bilateral regional nodalbasins including the axillary (level I ,II,III) and internal mammary regions wasperformed. 1: There is a mass measuring 0.8 x 0.6 x 0.5 cm in the right breast upperhemisphere at 12 o'clock located 9 centimeters from the nipple. There is noassociated increased vascularity. 2: There is a stable mass in the right breast upper outer quadrant at 10o'clock located 10 centimeters from the nipple. 3: There is an irregular mass measuring 1.4 x 0.8 x 0.8 cm in the left breastinner hemisphere at 8 to 9 o'clock located 7 centimeters from the nipple. Thereare associated calcifications. This corresponds to the mammographic finding. Left Regional [place] Basins: No suspicious axillary levels I, II, III(infraclavicular) or internal mammary lymph node is identified. Right Regional [place] Basins: No suspicious axillary levels I, II, III(infraclavicular) or internal mammary lymph node is identified. IMPRESSION:1: Mass in the right breast upper hemisphere at 12 o'clock located 9centimeters from the nipple is suspicious. Biopsy should be considered. Thepatient and referring doc were notified and biopsy performed the same day. 2: Mass in the right breast upper outer quadrant at 10 o'clock located 10centimeters from the nipple is benign. 3: Mass in the left breast inner hemisphere at 8 to 9 o'clock located 7centimeters from the nipple is suspicious. Biopsy should be considered. Thepatient and referring doc were notified and biopsy performed the same day. BI-RADS Category 4C:Suspicious Abnormality Lab Interpretation (test code = 61421-8) [facility]normal [facility] Bilateral with [id number] 14:13:04 * Test Item Value Reference Range Interpretation Comments IMP (test code = IMP) 1: Stable mass in the right breast upper outer quadrant at 10 o'clock [id number] centimeters from the nipple is benign. 2: Stable post biopsy clip in the right breast upper outer quadrant at 10o'clock located 5 centimeters from the nipple is benign. 3: Mass in the left breast inner hemisphere at 9 o'clock located 14 centimetersfrom the nipple requires additional imaging evaluation. Additional views andpossible ultrasound to follow are recommended. BI-RADS Category 0:Incomplete: Needs Additional Imaging Evaluation PXN (test code = PXN) Interface, Radiology Results In - 08/03/2020 9:13 AM CDTCLINICAL INDICATION:Patient is a 75 year old female and is seen for screening. MAMMO DIGITAL SCREENING BILATERAL W TOMODigital Mammogram evaluated with Computer Aided Detection (CAD). COMPARISON:The present examination has been compared to prior imaging studies performed [facility] on 12/12/2016 and 01/21/2018. FINDINGS:There are scattered areas of fibroglandular density. 1: There is a stable oval mass with circumscribed margins in the right breastupper outer quadrant at 10 o'clock located 10 centimeters from the nipple. On01/24/18, US showed that this mass had a benign appearance. 2: There is a stable post biopsy clip in the right breast upper outer quadrantat 10 o'clock located 5 centimeters from the nipple. On 04/30/14, MRI-guidedbiopsy demonstrated breast parenchyma, stromal fibrosis, and proliferativefibrocystic changes. The clip is thought to be lateral to the targeted lesion. 3: There is an irregular mass measuring 1.4 centimeters with associatedamorphous calcifications in the left breast inner hemisphere at 9 o'clocklocated 14 centimeters from the nipple. Calcifications were seen in the massand slightly anterior to the mass. Tomosynthesis performed in CC and MLO projections. IMPRESSION:1: Stable mass in the right breast upper outer quadrant at 10 o'clock [id number] centimeters from the nipple is benign. 2: Stable post biopsy clip in the right breast upper outer quadrant at 10o'clock located 5 centimeters from the nipple is benign. 3: Mass in the left breast inner hemisphere at 9 o'clock located 14 centimetersfrom the nipple requires additional imaging evaluation. Additional views andpossible ultrasound to follow are recommended. BI-RADS Category 0:Incomplete: Needs Additional Imaging E valuation Lab Interpretation (test code = 69941-3) Abnormal MD De La Garza
--- NOTE | 2020-08-21 10:20 | NUR ---
pt decline fentenyl, drug wasted in pt's room in sink with pt and rn witness.
--- NOTE | 2020-08-21 10:21 | NUR ---
radiology disc given to pt for follow up if needed.
--- NOTE | 2020-08-21 10:23 | Emergency Department Note ---
History of Present Illnes History of Present Illness Chief Complaint: Extremity Trauma/Pain History of Present Illness This is a 75 year old female accidentally fell last night on a walker, hurting her right knee, still managed to walk with a walker. 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 Any updates have been documented here. Past Medical History Recent Fever: No Clinical Suspicion of Infectio: No New/Unexplained Change in Ment: No Past Medical History: Cancer Other Surgery: HYSTERECTOMY Social History Smoking Cessation: Never Smoker Counseling Performed: No Any Illegal Drug Use: No TB Exposure/Symptoms: No Physically hurt or threatened: No Family History Family history of heart diseas: No Other Last Tetanus: UTD Is patient up to date on immun: No Review of Systems Review of Systems Constitutional: Reports no symptoms EENTM: Reports no symptoms Cardiovascular: Reports no symptoms Respiratory: Reports no symptoms Gastrointestinal: Reports no symptoms Genitourinary: Reports no symptoms Musculoskeletal: Reports as per HPI, Reports joint pain, Reports muscle pain Integumentary: Reports no symptoms Neurological: Reports no symptoms Psychological: Reports no symptoms Endocrine: Reports no symptoms Hematological/Lymphatic: Reports no symptoms Physical Exam Related Data Allergies: Coded Allergies: Penicillins (Verified Allergy, Unknown, 08/21/20) codeine (Verified Allergy, Unknown, 08/21/20) levofloxacin (Verified Allergy, Unknown, 08/21/20) morphine (Verified Allergy, Unknown, 08/21/20) Physical Exam CONSTITUTIONAL HENT EYES NECK PULMONARY CARDIOVASCULAR GASTROINTESTINAL GENITOURINARY SKIN MUSCULOSKELETAL Musculoskeletal: Present edema, Present tenderness, Present swelling (right knee swelling, small abrasion) NEUROLOGICAL PSYCHOLOGICAL Results Laboratory Lab results reviewed: Yes Imaging Imaging results reviewed: Yes Impressions no acute fx Procedures Orthopedic Splinting/Casting Injury: Injury #1 Side: right Lower extremity injury locatio: knee Lower extremity immobilizer: arash wrap Additional comments Pt has her own walker Assessment & Plan Medical Decision Making MDM contusion, fx, dislocation Assessment & Plan Final Impression: (1) Acute pain due to trauma (2) Sprain of right knee Depart Disposition: HOME, SELF-long-term Meds Reported Medications Clindamycin Hcl (CLINDAMYCIN HCL) 300 Mg Capsule, 300 MG PO TID 01/09/13 Lisinopril (LISINOPRIL) 5 Mg Tablet, 5 MG PO DAILY 01/09/13 Metformin Hcl (GLUCOPHAGE) 500 Mg Tablet, 1000 MG PO DAILY 01/09/13 Physician Attestation Provider Attestation Pt declines pain mediations MARIO SOTELO MD Aug 21, 2020 10:23
--- NOTE | 2020-08-21 10:30 | Diagnostic Imaging Report ---
Knee limited right CPT code: 56396 Indication: Fall Technique: AP and lateral view obtained of the right knee. Comparison: None Findings: No fracture or dislocation. Mild narrowing of the medial and patellofemoral compartments with ossified formation. Small osteophytes of the lateral compartment. Small suprapatellar effusion. No radiopaque foreign bodies in the soft tissues. IMPRESSION: Small suprapatellar effusion. No fracture or dislocation. Signed by: Dr. Audi Elkins MD on 08/21/2020 10:27 AM
== END 2020-08-21 10:40 | disposition home or self-care (01) ==
LOC: FSED 10:10
DX: S83.91XA Sprain of unspecified site of right knee, initial encounter (principal); W01.0XXA Fall on same level from slipping, tripping and stumbling without subsequent striking against object, initial encounter; Y93.01 Activity, walking, marching and hiking; Y92.008 Other place in unspecified non-institutional (private) residence as the place of occurrence of the external cause
CPT/HCPCS: 73560; 99283; J3010; Q0162

== ENCOUNTER → 2024-05-01 | Outpatient (REF) | payer MEDICARE | LOC: MRI 08:41 | PROVIDERS: ATTEND Psychiatry & Neurology Neurology | DX: G72.9 Myopathy, unspecified (principal) ==